=== PATIENT | female | born 1980 | race Caucasian/White ===

== ENCOUNTER 2023-06-10 14:58 | Emergency (ER) | payer BC, SELFPAY ==
[2023-06-10 15:07] VITALS: BP 148/84
[2023-06-10 15:30] LABS: % Basophils 0.5 % (0-2); % Eosinophils 0.4 % (0-6); % Immature Granulocytes 0.4 % (0-0.5); % Lymphocytes 13.8 % (20.5-51.1); % Monocytes 5.5 % (1.7-9.3); % Neutrophils 79.4 % (42.2-75.2); Absolute Monocytes 0.4 10^3/uL (0.1-0.6); Absolute Neutrophils 5.9 10^3/uL (1.4-6.5); Hematocrit 39.8 % (37.0-47.0); Mean Corp Hgb Conc. 32.7 g/dL (33.0-37.0); Mean Corpuscular Hgb 26.8 pg (27.0-31.0); Mean Corpuscular Volume 82.1 fL (81.0-99.0); Mean Platelet Volume 9.5 fL (7.4-10.4); Nucleated Red Blood Cells % 0 %; Platelet Count 292 10^3/uL (130-400); Red Blood Cell Count 4.85 10^6/uL (4.20-5.40); Red Cell Dist. Width 14.2 % (11.5-14.5); White Blood Cell Count 7.4 10^3/uL (4.8-10.8)
[2023-06-10 15:56] LABS: ALT (SGPT) 17 U/L (0-35); AST (SGOT) 23 U/L (14-36); Albumin 3.7 g/dl (3.5-5.0); Alkaline Phosphatase 77 U/L (38-126); Blood Urea Nitrogen 7 mg/dl (7-17); Calcium 9.6 mg/dl (8.4-10.2); Carbon Dioxide 27 mmol/L (22-30); Chloride 100 mmol/L (98-107); Glucose 104 mg/dl (70-99); Potassium 3.9 mmol/L (3.5-5.1); Sodium 136 mmol/L (135-145); Total Bilirubin 0.8 mg/dl (0.2-1.3); Total Protein 6.7 g/dl (6.3-8.2); Troponin I < 0.012 ng/ml; eGFR > 60.00
[2023-06-10 16:44] VITALS: BP 113/56
[2023-06-10 16:47] VITALS: BMI 29.2
--- NOTE | 2023-06-10 17:14 | ED.GENMED ---
History of Present Illness
General
Chief Complaint: Chest Pain
Source: patient
Exam Limitations: none
Time Seen by Provider: 06/10/23 17:14
Nursing documentation reviewed up to this point in time: agreed with
Travel History
Have you had any contact with someone who has COVID-19?: No
Do you have any symptoms of coronavirus? Fever > 100 degrees, chills, cough, shortness of breath, sore throat, loss of taste or smell, muscle aches, or headache?: No
History of Present Illness
History of Present Illness:
40-year-old female with history of Crohn's disease, colon resection presents stating since Saturday she has had burning left chest and left upper back pains intermittently. She states she when it started Saturday she had drank 3 to 4 glasses more
than usual of tea. She also had sausage that she has been eating daily since Saturday. She states she has become nauseous from the sausage and gets sick now every time she thinks about it.
Past History
Past History
ED Past Medical History: Other (Crohns Disease)
ED Past Surgical History: Bowel resection
Social History
Tobacco: Non-smoker
Alcohol: None
Personal: Single
Living: with family (lives with sister)
Employment: Not employed
Review of Systems
Review of Systems
Allergies reviewed?: Yes
All Other Systems: ROS reviewed and negative except as documented in HPI and ROS
Constitutional: Denies fever or fatigue
EENT: Denies sore throat
Respiratory: Denies cough or trouble breathing
Cardiac: Reports chest pain; Denies diaphoresis, palpitations or syncope
ABD/GI: Reports nausea; Denies abdominal pain, vomiting, diarrhea, constipated or anorexia
: Denies dysuria, frequency or difficulty voiding
Musculoskeletal: Reports no symptoms
Skin: Reports no symptoms
Neurological: Reports headache (mild)
Phy Exam
Physical Exam
Physical Exam:
GENERAL: No acute distress. A&Ox3.
CONSTITUTIONAL: Afebrile.
EYES: PERRL, conjunctivae normal
Neck: Supple
ENMT: moist mucus membranes, Pharynx nl, TMs normal
RESPIRATORY: Regular respirations, nonlabored, lungs clear.
CARDIOVASCULAR: Regular rate and rhythm, no murmurs, no rubs.
GI: Soft, nontender, normal BS
MUSCULOSKELETAL: Moves with ease. Well perfused.
SKIN: Warm, dry, pink
PSYCH: Normal mood and affect. Well kept, interactive and appropriate
NEUROLOGIC: Awake, alert and oriented. No focal neurological deficits
Scores
Heart Score for Chest Pain Patients
STEMI patient?: Not applicable
Course
Orders/Labs/Results
Orders:
Orders
06/10/23 15:10
EKG [Electrocardiogram (*1)] Urgent
Reason for Study: Chest Pain
EKG- Treatment ONCE
06/10/23 15:18
Complete Blood Count/With Diff Urgent
Comprehensive Metabolic Panel Urgent
Troponin I Urgent
06/10/23 17:40
CR Chest - 2 Views Urgent
Comment:
Reason For Exam: left chest pain
Abnormal Lab Results
06/10/23
15:18
MCH 26.8 L pg
(27.0-31.0)
MCHC 32.7 L g/dL
(33.0-37.0)
Absolute Lymphs (auto) 1.0 L 10^3/uL
(1.2-3.4)
Neutrophils % 79.4 H %
(42.2-75.2)
Lymphocytes % 13.8 L %
(20.5-51.1)
Glucose 104 H mg/dl
(70-99)
06/10/23 15:18
06/10/23 15:18
Vital Signs
Initial and Last Documented VS:
Initial Vital Signs
Temp Pulse Resp BP Pulse Ox
98.7 F 86 18 148/84 96
06/10/23 15:07 06/10/23 15:07 06/10/23 15:07 06/10/23 15:07 06/10/23 15:07
Last Documented Vital Signs
Temp Pulse Resp BP Pulse Ox
98.7 F 74 18 113/56 96
06/10/23 15:07 06/10/23 16:45 06/10/23 16:45 06/10/23 16:44 06/10/23 15:07
MDM/Problems Addressed
Differential Diagnosis Includes:
GERD, ACS
MDM/Problems Addressed:
40-year-old female with history of Crohn's disease, colon resection presents stating since Saturday she has had burning left chest and left upper back pains intermittently. She states she when it started Saturday she had drank 3 to 4 glasses more
than usual of tea. She also had sausage that she has been eating daily since Saturday. She states she has become nauseous from the sausage and gets sick now every time she thinks about it.
EKG NSR
06/10/2023 1803 PM
CBC with no clinically significant abnormality
CMP normal
Troponin normal
Chest x-ray NAD
Most likely GERD, RX for Zofran sent to her pharmacy. Recommend Omeprazole
Texted PCP hotline as she has no PCP.
*EKG
Interpreted by ED Provider?: Yes
EKG Intrepretation Date: 06/10/23
Interpretation: normal
Rate: normal
Rhythm: sinus
Almyra: normal axis
Interval: normal interval
QRS Pattern: normal QRS
Ischemia: no ischemia
*Critical Care Note
Total Time (30-74mins, 75-104mins- exclusive of procedures): Not Applicable
ED Attending Note
-
Portions of this chart may have been created with voice recognition software.� Occasional wrong word or��sound alike� substitutions may have occurred due to the inherent limitations of voice recognition software.
Discharge Plan
Departure
Patient Disposition: Home (Routine Discharge)
Date of Disposition: 06/10/23
Time of Disposition: 18:05
Patient with high blood pressure during this ER visit?: No
Condition: Good
Discharge Problem:
Gastroesophageal reflux disease
Instructions: Chest Pain That Is Not Caused by the Heart (DC), Acid Reflux and GERD in Adults (DC)
Prescriptions:
New
ondansetron 4 mg tablet,disintegrating
4 mg PO Q8H PRN (Reason: nausea/vomiting) 4 Days Qty: 14 0RF
Referrals:
NONE,* [Family Provider] -
Activity Restrictions/Additional Instructions:
I have sent her information to the primary care provider hotline. Someone should be calling you within the next couple of days to help set you up with a primary care physician.
I sent a prescription to your pharmacy for Zofran to use as needed for nausea.
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
Your laboratory work is all normal, your chest x-ray is normal and your EKG is normal, nothing worrisome in your workup here today
Interventions
Interventions:
*Risk Screen - Suicide Last Done: 06/10/23 16:47
*General Assessment Last Done: 06/10/23 16:47
*Neglect/Abuse Screening Last Done: 06/10/23 16:47
ED- Fall Risk Assessment Last Done: 06/10/23 16:50
*ED COVID-19 Vaccine History Last Done: 06/10/23 16:47
ED- Cardiac Assessment Last Done: 06/10/23 16:50
[2023-06-10 18:39] VITALS: BP 127/72
[2023-06-10 18:47] VITALS: BP 127/72
[2023-06-10 18:49] VITALS: BP 127/72
== END 2023-06-10 18:50 | disposition home or self-care (01) ==
LOC: EMR 14:58
PROVIDERS: EMERGENCY PHYSICIAN Emergency Medicine
DX: K21.9 Gastro-esophageal reflux disease without esophagitis (principal); K50.90 Crohn's disease, unspecified, without complications
CPT/HCPCS: 99285; 71046; 80053; 84484; 85025; 93005

== ENCOUNTER 2023-07-31 13:04 | Inpatient (IN) | payer BC, SELFPAY ==
[2023-07-31] VITALS (12 sets, daily range): BP systolic 69–129; BP diastolic 54–76; BMI 28.3
--- NOTE | 2023-07-31 09:01 | ED.GENMED ---
History of Present Illness
General
Chief Complaint: Abdominal Symptoms
Source: patient
Exam Limitations: none
Time Seen by Provider: 07/31/23 08:30
Travel History
Have you had any contact with someone who has COVID-19?: No
Do you have any symptoms of coronavirus? Fever > 100 degrees, chills, cough, shortness of breath, sore throat, loss of taste or smell, muscle aches, or headache?: No
History of Present Illness
History of Present Illness:
42-year-old female complaining of recurrent vomiting diarrhea abdominal bloating and abdominal pain. Symptoms started last evening. Vomited multiple times. Multiple episodes of diarrhea. Somewhat loose no blood or mucus. Patient with a history
of Crohn's disease and Crohn's resection. However this feels different than her Crohn's. No recent travel history no recent antibiotics. She did eat fish from a restaurant 2+ days ago.
Past History
Past History
ED Past Medical History: Other (Crohns Disease)
ED Past Surgical History: Bowel resection
Social History
Tobacco: Non-smoker
Alcohol: None
Personal: Single
Living: with family (lives with sister)
Employment: Not employed
Review of Systems
Review of Systems
All Other Systems: Not applicable
Constitutional: Denies fever
Respiratory: Reports no symptoms
: Reports no symptoms
Phy Exam
Physical Exam
Physical Exam:
GENERAL: Alert and oriented in no apparent distress
EYE: Orbits normal.
NECK: Supple
CARDIAC: Regular rate and rhythm without any obvious murmurs.
LUNGS: Clear breath sounds,normal
ABDOMEN: Distended. Decreased bowel sounds diffusely. Rare bowel sounds present. No rebound or guarding. Questionable mass in the left lower quadrant with localized tenderness.
NEUROLOGICAL: Alert and oriented , grossly non-focal
SKIN: Warm and dry, no rash or lesion, no discoloration, skin intact.
MUSCULOSKELETAL: No edema,no deformity.Good color
PSYCH: Normal and appropriate interaction.
Course
Orders/Labs/Results
Orders:
Orders
07/31/23 08:54
CMP [Comprehensive Metabolic Panel] Urgent
Complete Blood Count/With Diff Urgent
HCG, Serum Qualitative Screen Urgent
Lipase Urgent
07/31/23 08:56
IV Insert/Care/Rem.- Treatment PRN
STOOL [C difficile Antigen & Toxins] Urgent
MARGARET Source: Feces/Stool
Specimen Description:
Stool Culture Urgent
MARGARET Source: Feces/Stool
Specimen Description:
0.9% Sodium Chloride 1000 ml [Nss] 1,000 ml IV BOLUS
Ondansetron Injectable [Zofran] 4 mg IV NOW STA
07/31/23 08:57
CT Abd/Pel (IV only)-DH only Urgent
Comment:
Reason For Exam: Vomiting, diarrhea, left lower quadrant pain
Test Result ONCE
07/31/23 12:02
Ketorolac [Toradol] 15 mg IV NOW STA
Ondansetron Injectable [Zofran] 4 mg IV NOW STA
07/31/23 12:23
Admit/Transfer Patient As Directed
Co-Sign Provider:
Level of Care: Inpatient admission
Assign to:: Medical/Surgical
Physician / Group: hosp
Diagnosis: Small bowel obstruction
Reason for Hospitalization: Small bowel obstruction
Expected length of stay greater than two midnights?: Yes
ELOS- Estimated Length of Stay in days: 4
I certify the patient meets the requirements for IP care: Yes
07/31/23 12:25
Code Status As Directed
Resuscitation Status: Full Code
07/31/23 12:[address] Non Medication Order As Directed
Physician Order: Please insert NG tube to low Gomco suction
07/31/23 12:37
HYDROmorphone [Dilaudid] 0.5 mg IV Q4HPRN PRN
07/31/23 12:58
Lorazepam [Ativan] 0.25 mg IV Q8HPRN PRN
07/31/23 13:00
Stool Culture Routine
MARGARET Source: Feces/Stool
Specimen Description:
Stool For WBC Routine
MARGARET Source: Feces/Stool
Specimen Description:
Lactated Ringers [Lr] 1,000 ml IV 120 mls/hr
MethylPREDNISolone PF [Solu-Medrol Pf] 60 mg IV Q8H
Stool for occult blood [Hemetest Stools] As Directed
07/31/23 14:00
Piperacillin/Tazo 3.375 Gram [Zosyn] 3.375 gram in 50 ml IV Q6H
Abnormal Lab Results
07/31/23
08:54
WBC 11.2 H 10^3/uL
(4.8-10.8)
MCH 26.7 L pg
(27.0-31.0)
MCHC 32.1 L g/dL
(33.0-37.0)
RDW 14.6 H %
(11.5-14.5)
Absolute Neuts (auto) 9.9 H 10^3/uL
(1.4-6.5)
Absolute Lymphs (auto) 0.6 L 10^3/uL
(1.2-3.4)
Neutrophils % 88.7 H %
(42.2-75.2)
Lymphocytes % 5.5 L %
(20.5-51.1)
Chloride 108 H mmol/L
(98-107)
Glucose 120 H mg/dl
(70-99)
07/31/23 08:54
07/31/23 08:54
Vital Signs
Initial and Last Documented VS:
Initial Vital Signs
Temp Pulse Resp BP Pulse Ox
98.3 F 83 16 121/76 98
07/31/23 08:24 07/31/23 08:24 07/31/23 08:24 07/31/23 08:24 07/31/23 08:24
Last Documented Vital Signs
Temp Pulse Resp BP Pulse Ox
98.3 F 83 16 108/71 100
07/31/23 08:24 07/31/23 08:24 07/31/23 08:24 07/31/23 12:00 07/31/23 12:15
MDM/Problems Addressed
Differential Diagnosis Includes:
Differential includes Crohn's flare although patient states this feels different partial SBO. Doubt full SBO with patient having diarrhea. Colitis, infectious. Workup in progress
*Radiology
Radiology exam reviewed: radiology read reviewed (Partial SBO Crohn's flare moderate free fluid loculated)
*Pulse Oximetry
Patient hypoxic: no
*Critical Care Note
Total Time (30-74mins, 75-104mins- exclusive of procedures): Not Applicable
Data Reviewed
Review of Other/Old Records Reveals: Labs and Testing
Update Note
Update Note:
Patient warrants inpatient management. Partial SBO Crohn's flare.
ED Attending Note
-
Portions of this chart may have been created with voice recognition software.� Occasional wrong word or��sound alike� substitutions may have occurred due to the inherent limitations of voice recognition software.
Discharge Plan
Departure
Patient Disposition: Admit
Date of Disposition: 07/31/23
Time of Disposition: 11:14
Presentation/result/management discussed w/ accepting MD/DO: Hospitalist
Discharge Problem:
Crohn's flare, Partial SBO, Loculated peritoneal fluid
Prescriptions:
No Action
naproxen sodium [Aleve] 220 mg Tablet
220 mg PO TIDPRN PRN (Reason: mild pain)
aripiprazole 5 mg Tablet
5 mg PO HS
Gi Powder
1 dose PO DAILY
Patient Comments:
07/31/2023, one scoop.
Probiotic Powder
1 dose PO DAILY
Patient Comments:
07/31/2023, one scoop.
Vitamin C
1 dose PO DAILYPRN PRN (Reason: supplement)
Patient Comments:
07/31/2023, gummies.
cholecalciferol (vitamin D3)
1 tab PO DAILY
multivitamin liquid
1 dose PO DAILY
multivitamin
1 dose PO DAILYPRN PRN (Reason: supplement)
Patient Comments:
07/31/2023, gummies.
Referrals:
NONE,* [Family Provider] -
Interventions
Interventions:
*Risk Screen - Suicide Last Done: 07/31/23 08:43
*General Assessment Last Done: 07/31/23 08:43
*Neglect/Abuse Screening Last Done: 07/31/23 08:43
ED- Fall Risk Assessment Last Done: 07/31/23 08:43
*ED COVID-19 Vaccine History Last Done: 07/31/23 08:24
BC-Rjdphw-Gsztjrbubu Assessment Last Done: 07/31/23 08:43
Discharge Date and Time
Print Language: KYRGYZ
[2023-07-31 09:22] LABS: % Basophils 0.2 % (0-2); % Eosinophils 0.2 % (0-6); % Immature Granulocytes 0.4 % (0-0.5); % Lymphocytes 5.5 % (20.5-51.1); % Neutrophils 88.7 % (42.2-75.2); Absolute Lymphocytes 0.6 10^3/uL (1.2-3.4); Absolute Monocytes 0.6 10^3/uL (0.1-0.6); Absolute Neutrophils 9.9 10^3/uL (1.4-6.5); Hematocrit 40.5 % (37.0-47.0); Mean Corp Hgb Conc. 32.1 g/dL (33.0-37.0); Mean Corpuscular Hgb 26.7 pg (27.0-31.0); Mean Corpuscular Volume 83.2 fL (81.0-99.0); Mean Platelet Volume 10.1 fL (7.4-10.4); Nucleated Red Blood Cells % 0 %; Platelet Count 280 10^3/uL (130-400); Red Blood Cell Count 4.87 10^6/uL (4.20-5.40); Red Cell Dist. Width 14.6 % (11.5-14.5); White Blood Cell Count 11.2 10^3/uL (4.8-10.8)
[2023-07-31] MEDS: NSS 1000 IV (09:26)
[2023-07-31] MEDS: ZOFRAN 4 MG IV ×3 (09:27→23:32)
[2023-07-31 09:36] LABS: ALT (SGPT) 19 U/L (0-35); AST (SGOT) 25 U/L (14-36); Albumin 4.1 g/dl (3.5-5.0); Alkaline Phosphatase 73 U/L (38-126); Blood Urea Nitrogen 10 mg/dl (7-17); Calcium 9.1 mg/dl (8.4-10.2); Carbon Dioxide 24 mmol/L (22-30); Chloride 108 mmol/L (98-107); Estimated Creatinine Clearance > 125 ml/min; Glucose 120 mg/dl (70-99); Lipase 72 U/L (23-300); Potassium 4.5 mmol/L (3.5-5.1); Sodium 136 mmol/L (135-145); Total Bilirubin 0.6 mg/dl (0.2-1.3); Total Protein 6.7 g/dl (6.3-8.2); eGFR > 60.00
[2023-07-31 09:55] LABS: HCG, Serum Qualitative Screen Negative
[2023-07-31] MEDS: TORADOL 15 MG IV (12:10)
--- NOTE | 2023-07-31 12:38 | HPS.HSE ---
Family Physician
-
Family Physician: * NONE
Chief Complaint
-
Persisting and increasing nausea vomiting and diarrhea since last night
History of Present Illness
42-year-old female complaining of recurrent vomiting diarrhea abdominal bloating and abdominal pain. Symptoms started last evening. Vomited multiple times. Multiple episodes of diarrhea. Somewhat loose no blood or mucus. Patient with a history
of Crohn's disease and Crohn's resection. However this feels different than her Crohn's. No recent travel history no recent antibiotics. She did eat fish from a restaurant 2+ days ago. She has a history of a colectomy in the [place] area. more
recently She has been seen in [place] by a electric furnace operator that follows her for her Crohn's disease by the name of Dr. Knox/she has had prior experience with Biologics but never able to tolerate she does not have anyone locally to manage her
Crohn's in the last 2 years since she is moved here. She suspect she may have had a fever last night she did not present with a fever here she does have some minor leukocytosis on presentation she does not look septic. hCG was negative lipase
normal LFTs normal./She does not follow with any gynecology.
Medical History
Past Medical History
Past Medical History: Reports Psychiatric
Additional Past Medical History:
Treated for anxiety disorder with Abilify
Past Surgical History: Reports Bowel Resection
Additional Past Surgical History:
Prior history of colectomy in relation to 2 Crohn's disease
Social History
Tobacco: Non-smoker
Alcohol: None
Drug: None
Personal: Single
Living: With Family (Sister)
Employment: Not Employed
Family History
Family History: Not pertinent (Apparently no prior history of inflammatory bowel disease and family member)
Allergies / Home Medications
Allergies reflects when Allergies were last updated in [employer].
Home Medications with original date entered in [employer]
Allergy/Medication List:
Allergies
Allergy/AdvReac Type Severity Reaction Status Date / Time
shrimp Allergy Intermediate Swelling Verified 07/31/23 08:25
Milk Containing Products Allergy Unknown Unknown Verified 07/31/23 08:25
(Dairy)
Home Medications
Gi Powder 1 dose PO DAILY 07/31/23
Probiotic Powder 1 dose PO DAILY 07/31/23
Vitamin C 1 dose PO DAILYPRN PRN supplement 07/31/23
aripiprazole 5 mg tablet 5 mg PO HS 07/31/23
cholecalciferol (vitamin D3) 1 tab PO DAILY 07/31/23
multivitamin 1 dose PO DAILY 07/31/23
multivitamin 1 dose PO DAILYPRN PRN supplement 07/31/23
naproxen sodium 220 mg tablet (Aleve) 220 mg PO TIDPRN PRN mild pain 07/31/23
Review of Systems
-
History Source: Patient and Family
Constitutional: Reports Weight Loss (Recently but could not specify amount)
EENT: Reports No Symptoms
Abdomen/GI: Reports Abdominal Pain, Nausea, Vomiting, Diarrhea and Pain
: Reports No Symptoms
Musculoskeletal: Reports No Symptoms
Skin: Reports No Symptoms
Endocrine: Reports No Symptoms
Psych: Reports Anxiety
Physical Exam
Vital Signs
Vital Signs
Temp Pulse Resp BP Pulse Ox
98.3 F 83 16 108/71 100
07/31/23 08:24 07/31/23 08:24 07/31/23 08:24 07/31/23 12:00 07/31/23 12:15
Physical Exam
HEENT: NormoCephalic
Respiratory: Clear
Cardiac: S1/S2
GI: Tender and Distended
Neuro: Awake, Alert and Oriented
Psych: Calm
Laboratory Results
-
07/31/23 08:54
07/31/23 08:54
Laboratory Results
Total Bilirubin 0.6 mg/dl (0.2-1.3) 07/31/23 08:54
AST 25 U/L (14-36) 07/31/23 08:54
ALT 19 U/L (0-35) 07/31/23 08:54
Alkaline Phosphatase 73 U/L (38-126) 07/31/23 08:54
Lipase 72 U/L (23-300) 07/31/23 08:54
Data Reviewed
-
Critical Care Time (in minutes): 67
CT Scan: Report Reviewed by me (1. Two foci of inflammatory bowel wall thickening and luminal narrowing, one within the distal small bowel (best seen on series 201 images 49-52), and the second located within the high rectum, best seen on image 64.
Dilation of multiple loops of mid and distal small bowel, suggestive of at least pa)
Lab Data: Labs Reviewed by me (Mild leukocytosis macrocytosis/LFTs within normal limits as well as lipase/hCG negative)
Impression/Plan
-
42-year-old female complaining of recurrent vomiting diarrhea abdominal bloating and abdominal pain. Symptoms started last evening. Vomited multiple times. Multiple episodes of diarrhea. Somewhat loose no blood or mucus. Patient with a history
of Crohn's disease and Crohn's resection. However this feels different than her Crohn's. No recent travel history no recent antibiotics. She did eat fish from a restaurant 2+ days ago. She has a history of a colectomy in the [place] area. more
recently She has been seen in [place] by a electric furnace operator that follows her for her Crohn's disease by the name of Dr. Knox/she has had prior experience with Biologics but never able to tolerate she does not have anyone locally to manage her
Crohn's in the last 2 years since she is moved here. She suspect she may have had a fever last night she did not present with a fever here she does have some minor leukocytosis on presentation she does not look septic. hCG was negative lipase
normal LFTs normal./She does not follow with any gynecology.
CT scan of the abdomen and pelvis:
1. Two foci of inflammatory bowel wall thickening and luminal narrowing, one within the distal small bowel (best seen on series 201 images 49-52), and the second located within the high rectum, best seen on image 64. Dilation of multiple loops of
mid and distal small bowel, suggestive of at least partial intestinal obstruction.
2. Large amount of loculated intraperitoneal fluid, overall measuring 24 x 25 x 15 cm, of unknown etiology. Fluid may be related to ovarian mass, mucinous lesion of the bowel, or other etiology. Please correlate with prior imaging if available, and
consider pelvic ultrasound and or fluid sampling for cytology to determine etiology.
3. Cholelithiasis without evidence of acute cholecystitis.
Partial small bowel obstruction
-Prior history of Crohn's disease with colectomy
-Also involvement noted in rectum
-NG tube for decompression
-IV fluids
-Empiric antibiotic
-Consultation with colorectal and gastroenterology
Large amount of loculated intraperitoneal fluid
-As noted above unknown etiology/amount of loculation suggests some chronicity
-To the extent also involving and adjacent to the uterus
-Will obtain pelvic ultrasound
-Based on findings may need gynecologic input also/
Crohn's disease flare
-Failed prior courses of Biologics
-Sees electric furnace operator down in [place] area Dr. Knox no further details available from patient
-Will obtain gastroenterology input and start IV steroids for now
-Obtain stools for culture
Prior history of anxiety disorder
-On Abilify at bedtime
-Will need to be held during n.p.o. status and NG tube
DVT prophylaxis with Lovenox and SCDs
Full CODE STATUS
[2023-07-31] MEDS: LR 1000 IV (12:43)
--- NOTE | 2023-07-31 13:46 | CON.GI ---
Consultation
-
Date/Time Consultation Requested: 07/31/23 12:21pm
Date/Time Consultation Performed: 07/31/23 1:46pm
Requesting Provider: Kaden Chapman
Performing Provider: Chriss Gonzales
Reason for Consultation: Crohns, PSBO
Medical History
Chief Complaint / HPI
Chief Complaint: Crohn's, PSBO
History of Present Illness:
Patient is a 42-year-old female with a history of Crohn's disease who presents with nausea and vomiting and diarrhea and abdominal pain. She was diagnosed with Crohn's disease at age 18 in [place] and initially managed with Pentasa and
intermittent courses of steroids for years. She had a perforation in 2012 that led to an ileocecectomy. Following that she was on and off steroids for years but never started on Biologics. She also had stopped her Pentasa. In 2018 she had
further colon resection for obstruction with lysis of adhesions. Following that she was tried on Remicade but developed side effects and frequently got sick. She had 1 dose and did not resume. Since then she has been off of medications and has
tried to manage her Crohn's disease despite diet alone. She moved from [place] in 2021 but did not have a handy man until she met with Dr. Bermeo and your history of 4 months ago. This was her initial evaluation and he ordered stool
studies and asked her to return to the office for follow-up. She has had bloating, erratic bowel movements, episodic diarrhea alternating with constipation. She ate fish on Saturday at a restaurant and had bloating and feeling unwell. She began
with nausea, vomiting yesterday and has had diarrhea as well.
Past Medical History
Past Medical History: Other (Crohn's)
Past Surgical History: Other (Ileocecectomy for perforated bowel 2012. Colon resection for obstruction 2018)
Social History
Tobacco: Non-Smoker
Family History
Family History: Reviewed & Not Pertinent
Allergies / Home Medications
Allergy/AdvReac Type Severity Reaction Status Date / Time
shrimp Allergy Intermediate Swelling Verified 07/31/23 08:25
Milk Containing Products Allergy Unknown Unknown Verified 07/31/23 08:25
(Dairy)
�Medication �Instructions �Recorded
Gi Powder 1 dose PO DAILY 07/31/23
Probiotic Powder 1 dose PO DAILY 07/31/23
Vitamin C 1 dose PO DAILYPRN PRN supplement 07/31/23
aripiprazole 5 mg tablet 5 mg PO HS 07/31/23
cholecalciferol (vitamin D3) 1 tab PO DAILY 07/31/23
multivitamin 1 dose PO DAILY 07/31/23
multivitamin 1 dose PO DAILYPRN PRN supplement 07/31/23
naproxen sodium 220 mg tablet 220 mg PO TIDPRN PRN mild pain 07/31/23
(Aleve)
Review of Systems
-
All other systems: A 12 pt ROS was Negative except as stated above in HPI
Vital Signs
Temp Pulse Resp BP Pulse Ox
98.3 F 83 16 108/71 99
07/31/23 08:24 07/31/23 08:24 07/31/23 08:24 07/31/23 12:00 07/31/23 13:00
Physical Exam
Exam
General: Well Developed, Well Nourished and No Apparent Distress
HEENT: Normocephalic and Atraumatic
Respiratory: Non Labored Respirations
GI: Soft, Non Distended and Tender (mild tenderness, LLQ. No rebound or guarding)
Skin: Warm and Dry
Neuro: Awake and Alert
Results
WBC 11.2 10^3/uL (4.8-10.8) H 07/31/23 08:54
Hgb 13.0 g/dL (12.0-16.0) 07/31/23 08:54
Hct 40.5 % (37.0-47.0) 07/31/23 08:54
MCV 83.2 fL (81.0-99.0) 07/31/23 08:54
Plt Count 280 10^3/uL (130-400) 07/31/23 08:54
Absolute Neuts (auto) 9.9 10^3/uL (1.4-6.5) H 07/31/23 08:54
Sodium 136 mmol/L (135-145) 07/31/23 08:54
Potassium 4.5 mmol/L (3.5-5.1) 07/31/23 08:54
Chloride 108 mmol/L (98-107) H 07/31/23 08:54
Carbon Dioxide 24 mmol/L (22-30) 07/31/23 08:54
BUN 10 mg/dl (7-17) 07/31/23 08:54
Creatinine 0.6 mg/dL (0.6-1.0) 07/31/23 08:54
Calcium 9.1 mg/dl (8.4-10.2) 07/31/23 08:54
Total Bilirubin 0.6 mg/dl (0.2-1.3) 07/31/23 08:54
AST 25 U/L (14-36) 07/31/23 08:54
ALT 19 U/L (0-35) 07/31/23 08:54
Alkaline Phosphatase 73 U/L (38-126) 07/31/23 08:54
Lipase 72 U/L (23-300) 07/31/23 08:54
Diagnostic Image Results:
Prior GI Procedures:
EGD:
Colonoscopy:
Assessment / Plan
-
Summary: 42yo female with hx Crohn's dx'd age 18 s/p 2 surgeries in [place], not on medications presents with n/v/d, abd pain x 2 days, but has had chronic bloating, erratic BMs. Last colonoscopy at time of surgery in 2019. Just reestablished GI care
with Dr Bermeo in [facility] 3-4 months ago. NGT attempted in ER but unable to tolerate.
CT AP 07/30:
Thickening distal SB and high rectum. Dilation multiple loops mid/distal SB suggesting PSBO. Large amount loculated intraperitoneal fluid 24 x 25 x 15cm unknown etiology. Cholelithiasis
Impression:
PSBO 2/2 thickening in distal SB as well as high rectum
n/v/d
Crohn's disease not on medications
Ileocectomy 2012 for perforation
Colon resection 2018 for obstruction
Recommendations:
NPO
If further n/v, reattempt NGT for decompression
Abx- zosyn
If no improvement, may add steroids for Crohn's flare
Check stool studies r/o infxn
Unclear cause for loculated intraperitoneal fluid. Consider drainage for cytology and fluid analysis, will discuss with Colorectal Surgery
Will need to discuss initiating biologics as outpt with her GI in [facility] pending her hospital course and possible need for surgery
-
-
Thank you for consultation and allowing me to participate in the patient's care. Please call the transitional living specialist GI physician during the after hours with any questions or concerns.
[2023-07-31] MEDS: ZOSYN 50 IV ×2 (13:47→20:35)
[2023-07-31] MEDS: SOLU-MEDROL PF 60 MG IV ×2 (13:47→20:35)
--- NOTE | 2023-07-31 14:28 | CON.CRS ---
Consultation
-
Date/Time Consultation Requested: 07/31/2023, 12:55
Date/Time Consultation Performed: 07/31/2023, 14:00
Requesting Provider: Satya Chapman MD
Performing Provider: Jaylen Ramos MD
Reason for Consultation: crohns with sbo
Medical History
-
Chief Complaint: abdominal pain
History of Present Illness:
42 yo female with a PMH of Crohns disease, s/p two colectomies and currently not on any biologics, presents to the ER complaining of abdominal pain, nausea, vomiting, and diarrhea. The patient states the abdominal pain started yesterday evening when
she developed vomiting and subsequently the abdominal pain. She denies blood in her vomit. During this episode, she began to develop diarrhea and denies blood in her stool. The patient also believes she had a fever last night. She denies chest pain
or shortness of breath. She had some issues urinating when the pain developed but was able to urinate as she was vomiting. She states she feels bloated but has felt bloated for several years since her surgery in 2019. Apparently this occurs right
after eating, even if it is something small. She denies recent weight loss.
The patient states she was diagnosed with Crohns disease when she was 18 years old. She has lived in [place] and only recently moved to the area. She saw a GI doctor in [place] who put her on steroids when she was younger, and believes one of them
may have been Asacol. She underwent what sounds like a ileocecectomy due to perforation in [place] in 2012. Unfortunately her records are not available for review. She subsequently underwent what appears radiographically to be a subtotal colectomy
for lysis of adhesions and obstruction in 2019 in [place]. She was started on Remicade by a GI doctor, but stopped after one dose due to effects on her immune system. She has not been on any biologics since then. She recently saw a
lard bleacher, Dr. Lawrence, in [place] and wants to continue to follow up with her care there. She met with this physician four months ago and stool studies were ordered and she was told to follow up. Her last colonoscopy was in 2019 during her
surgery. She denies any other abdominal surgeries.
In the ER she is nauseated. Her WBC is 11.2 and her vitals are normal. CT A/P shows two foci of inflammatory bowel wall thickening and luminal narrowing, one within the distal small bowel, and the second located within the high rectum. Dilation of
multiple loops of mid and distal small bowel, suggestive of at least partial intestinal obstruction. Large amount of loculated intraperitoneal fluid, overall measuring 24 x 25 x 15 cm, of unknown etiology. Fluid may be related to ovarian mass,
mucinous lesion of the bowel, or other etiology. Please correlate with prior imaging if available, and consider pelvic ultrasound and or fluid sampling for cytology to determine etiology. Cholelithiasis without evidence of acute cholecystitis. Given
these findings, we have been consulted for further surgical recommendations.
Past Medical History
Past Medical History: Psychiatric (anxiety) and Other (Crohns dz - diagnosed at 18, not on any biologics )
Past Surgical History: Other (2013- ileocecectomy, 2019- subtotal colectomy)
Social History
Tobacco: Non-Smoker
Alcohol: Occasional
Drug: None
Employment: Not Employed
Family History
Family History: Other (Father's side with 'colon problems')
Allergies / Home Medications
Allergy/AdvReac Type Severity Reaction Status Date / Time
shrimp Allergy Intermediate Swelling Verified 07/31/23 08:25
Milk Containing Products Allergy Unknown Unknown Verified 07/31/23 08:25
(Dairy)
�Medication �Instructions �Recorded �Confirmed �Type
Gi Powder 1 dose PO DAILY 07/31/23 07/31/23 History
Probiotic Powder 1 dose PO DAILY 07/31/23 07/31/23 History
Vitamin C 1 dose PO DAILYPRN PRN supplement 07/31/23 07/31/23 History
aripiprazole 5 mg tablet 5 mg PO HS 07/31/23 07/31/23 History
cholecalciferol (vitamin D3) 1 tab PO DAILY 07/31/23 07/31/23 History
multivitamin 1 dose PO DAILY 07/31/23 07/31/23 History
multivitamin 1 dose PO DAILYPRN PRN supplement 07/31/23 07/31/23 History
naproxen sodium 220 mg tablet 220 mg PO TIDPRN PRN mild pain 07/31/23 07/31/23 History
(Aleve)
Review of Systems
-
History Source: Patient
Constitutional: Fever
Abdomen/GI: Abdominal Pain, Nausea, Vomiting, Diarrhea and Other (bloating)
A 10 point review of systems was completed, and was negative except as per HPI.
Physical Exam
Vital Signs
Temp 98.3 F 07/31/23 08:24
Pulse 83 07/31/23 08:24
Resp Rate 16 07/31/23 08:24
Blood pressure 105/62 07/31/23 14:00
SaO2 95 07/31/23 14:00
07/30/23 07/31/23 08/01/23
06:59 06:59 06:59
Actual Weight 77.1 kg
Body Mass Index (BMI) 28.3
Lab Results / Allergies
07/31/23 08:54
07/31/23 08:54
WBC 11.2 10^3/uL (4.8-10.8) H 07/31/23 08:54
Hgb 13.0 g/dL (12.0-16.0) 07/31/23 08:54
Hct 40.5 % (37.0-47.0) 07/31/23 08:54
Plt Count 280 10^3/uL (130-400) 07/31/23 08:54
Abs Immat Gran (auto) 0.0 10^3/uL (0-0.05) 07/31/23 08:54
Neutrophils % 88.7 % (42.2-75.2) H 07/31/23 08:54
Allergy/AdvReac Type Severity Reaction Status Date / Time
shrimp Allergy Intermediate Swelling Verified 07/31/23 08:25
Milk Containing Products Allergy Unknown Unknown Verified 07/31/23 08:25
(Dairy)
Physical Exam
General: Well Developed, Well Nourished and No Apparent Distress
GI: Soft, Tender (mildly diffuse, more prominent in RLQ) and Distended
Skin: Warm
Neuro: AO x 3
Data Reviewed
-
CT Scan: Image Personally Visualized and interpreted, Report Reviewed by me and Discussed with Patient
Labs: Labs Reviewed by me, Discussed with Physician and Discussed with Patient
Old Records: Reviewed
Assessment / Plan
-
Assessment: 42 yo female with a history of Crohns disease not currently on biologics and s/p two colectomies in the past in [place], presents with abdominal pain, nausea, vomiting, diarrhea and fever. On CT A/P, she is found with a two foci of
inflammatory bowel wall thickening and luminal narrowing, one within the distal small bowel and the second located within the high rectum, dilation of multiple loops of mid and distal small bowel, suggestive of at least partial intestinal
obstruction, large amount of loculated intraperitoneal fluid, overall measuring 24 x 25 x 15 cm, of unknown etiology. Fluid may be related to ovarian mass, mucinous lesion of the bowel, or other etiology.
Plan:
1. No urgent surgery required at this time.
2. Recommend consult with gastroenterology.
3. Will consult IR for aspiration of fluid collection.
4. Recommend a transvaginal ultrasound.
5. Will order tumor markers - CEA and CA-125.
6. Remain NPO.
7. On IV Zosyn per medical service.
8. Stool cultures pending.
9. Will follow.
[2023-07-31 16:55] LABS: Body Fluid WBC 25 /CUMM
[2023-07-31 16:58] LABS: Body Fluid Second Tech EYM
[2023-07-31 17:13] LABS: Body Fluid Albumin 3.3 g/dl; Body Fluid Amylase 280 U/L; Body Fluid Glucose 41 mg/dl; Body Fluid LDH 102 U/L; Body Fluid Protein 5.1 g/dl
[2023-07-31] MEDS: LOVENOX 40 MG SC (18:43)
--- NOTE | 2023-07-31 18:49 | PTCARENOTE ---
PATIENT ARRIVED ON FROM ED AT APPROXIMATELY 1820. PT WALKED OFF OF STRETCHER TO BED. PT AAOX3. PT ORIENTED TO ROOM. NO COMPLAINTS OFFERED AT THIS TIME. CONTINUE TO MONITOR
[2023-07-31] MEDS: ATIVAN 0.25 MG IV (21:05)
--- NOTE | 2023-07-31 23:00 | PTCARENOTE ---
Pt had order for NGT placement, NGT order vague. Specimen Transporter reached out to SOHAM Chaparro for clarifying order. SOHAM Chaparro made aware pt also had difficulty keeping NGT down and had removed it in ED, with no current vomiting only some nausea. HOSPITAL ACCOUNT MANAGER
ordered to hold NGT unless pt has episodes of vomiting d/t being unable to keep it down prior. Pt ordered PRN Zofran and one time dose of Protonix IV. No further orders.
[2023-07-31] MEDS: NSS (PRESERVATIVE FREE) 10 ML IV (23:50)
[2023-07-31] MEDS: PROTONIX IV 40 MG IV (23:50)
[2023-08-01] MEDS: ZOSYN 50 IV ×4 (03:07→19:59)
[2023-08-01] MEDS: LR 1000 IV (03:07)
[2023-08-01] MEDS: SOLU-MEDROL PF 60 MG IV (05:51)
[2023-08-01 07:00] VITALS: BP 93/54
--- NOTE | 2023-08-01 08:21 | W.PN.CRS1 ---
Today's Communication / Plan
-
Ok for clrs, back down to NPO if any N/V
F/u stool studies, CRP, calpro
F/u fluid studies, tumor markers and transvaginal U/S
Appreciate GI
Assessment/Plan
-
42-year-old female with a long history of Crohn's disease (initially diagnosed at 18 years old, s/p rounds of steroids and maintenance therapy with asacol; s/p likely ileocecal resection in 2012 for perforation and subtotal colectomy in 2019; was
started on Remicade, but only received 1 dose and stopped due to side effects; recently moved to the area and has not continued care with the GI doctor; last endoscopic evaluation of the rectum was in 2019 during the surgery) who presents with 1 day
of acute onset nausea/vomiting, diarrhea and subjective fevers. She also c/o abdominal fullness x 4 to 5 years with early satiety, this has been stable; in the ED, her WBC was 11.2, VSS, CT showing small bowel obstruction with 2 points of bowel
wall thickening in the distal SB and proximal rectum, as well as large multiloculated fluid within the abdomen
07/30 s/p IR aspiration of abd, 2L of clear brown ascites
AFVSS, labs pending
� No indication for acute surgical intervention; recommend nonoperative measures and further workup
� Her SBO is likely related to the bowel wall thickening in the distal small bowel; differential includes Crohn's versus adhesions versus infectious
�Appreciate GI consult, will defer to GI for steroids
�F/u stool studies, CRP and fecal calpro
�Consider CTE or MRE to evaluate if wall thickening is inflammatory or stricture
�Will need flexible sigmoidoscopy to evaluate the rectum due to thickening noted on CT
� The abdominal fluid is of unknown origin; she denies any history of liver disease, recent surgeries, weight loss or gynecologic issues
�S/p IR aspiration, f/u fluid studies and cytology
�F/u transvaginal ultrasound and tumor markers to assess for gynecologic malignancy
�Ok for clears, back down to NPO if any N/V
�Appreciate hospitalist; on abx empirically
Subjective Data
Subjective Data
Date of Service: August 01, 2023
No overnight events. Feeling better this morning. Nausea controlled with Zofran, no more vomiting.
Abdominal pain is minimal.
Patient is NPO.
+flatus +BMs (3 since yesterday) +voiding
Pt is OOB.
Objective Data
-
Vital Signs
Temp Pulse Resp BP Pulse Ox
98.6 F 65 16 104/54 97
07/31/23 23:29 07/31/23 23:29 07/31/23 23:29 07/31/23 23:29 07/31/23 23:29
Intake & Output
07/31/23 08/01/23 08/02/23
06:59 06:59 06:59
Intake Total 0 / 0
Balance 0 / 0
Intake:
Oral fluids 0 / 0
IV fluids (Total) 0 / 0
IV piggybacks 0 / 0
Other:
Number of approximated MODERATE 2
amounts of urine
Physical Exam
-
General: No Acute Distress and AOx3
HEENT: Grossly Normal
Abdomen: Soft, Non Distended, Tender (Minimally tender in the bilateral lower quadrants), No Guarding and No Rebound
Skin: Warm and Dry
[2023-08-01 09:18] LABS: Hematocrit 34.7 % (37.0-47.0); Hemoglobin 11.4 g/dL (12.0-16.0); Mean Corp Hgb Conc. 32.9 g/dL (33.0-37.0); Mean Platelet Volume 10.3 fL (7.4-10.4); Platelet Count 227 10^3/uL (130-400); Red Blood Cell Count 4.23 10^6/uL (4.20-5.40); Red Cell Dist. Width 14.4 % (11.5-14.5); White Blood Cell Count 6.9 10^3/uL (4.8-10.8)
[2023-08-01 09:54] LABS: ALT (SGPT) 20 U/L (0-35); AST (SGOT) 22 U/L (14-36); Albumin 3.1 g/dl (3.5-5.0); Alkaline Phosphatase 66 U/L (38-126); Blood Urea Nitrogen 10 mg/dl (7-17); Calcium 8.3 mg/dl (8.4-10.2); Carbon Dioxide 21 mmol/L (22-30); Chloride 110 mmol/L (98-107); Estimated Creatinine Clearance > 125 ml/min; Glucose 123 mg/dl (70-99); Iron 46 ug/dl (37-170); Magnesium 2.1 mg/dl (1.6-2.3); Potassium 3.8 mmol/L (3.5-5.1); Sodium 135 mmol/L (135-145); Total Bilirubin 0.7 mg/dl (0.2-1.3); Total Protein 5.4 g/dl (6.3-8.2); eGFR > 60.00
[2023-08-01 10:03] LABS: Percent Saturation 15 % (20-50); Total Iron Binding Capacity 302 ug/dl (265-497)
--- NOTE | 2023-08-01 10:46 | W.PN.HOSP.TC ---
Today's Communication/Plan
-
Trial of clears this morning
Await fluid analysis from paracentesis/cytology results
Await transvaginal ultrasound may need gynecologic input based on results
Continue IV steroids and IV Zosyn for now
Calprotectin pending/CRP pending
Assessment / Plan
Assessment / Plan
42-year-old female complaining of recurrent vomiting diarrhea abdominal bloating and abdominal pain. Symptoms started last evening. Vomited multiple times. Multiple episodes of diarrhea. Somewhat loose no blood or mucus. Patient with a history
of Crohn's disease and Crohn's resection. However this feels different than her Crohn's. No recent travel history no recent antibiotics. She did eat fish from a restaurant 2+ days ago. She has a history of a colectomy in the [place] area. more
recently She has been seen in [place] by a warehouse laborer that follows her for her Crohn's disease by the name of Dr. Knox/she has had prior experience with Biologics but never able to tolerate she does not have anyone locally to manage her
Crohn's in the last 2 years since she is moved here. She suspect she may have had a fever last night she did not present with a fever here she does have some minor leukocytosis on presentation she does not look septic. hCG was negative lipase
normal LFTs normal./She does not follow with any gynecology.
CT scan of the abdomen and pelvis:
1. Two foci of inflammatory bowel wall thickening and luminal narrowing, one within the distal small bowel (best seen on series 201 images 49-52), and the second located within the high rectum, best seen on image 64. Dilation of multiple loops of
mid and distal small bowel, suggestive of at least partial intestinal obstruction.
2. Large amount of loculated intraperitoneal fluid, overall measuring 24 x 25 x 15 cm, of unknown etiology. Fluid may be related to ovarian mass, mucinous lesion of the bowel, or other etiology. Please correlate with prior imaging if available, and
consider pelvic ultrasound and or fluid sampling for cytology to determine etiology.
3. Cholelithiasis without evidence of acute cholecystitis.
Partial small bowel obstruction
-Prior history of Crohn's disease with colectomy
-Also involvement noted in rectum
-NG tube for decompression was pulled out by patient last night
-IV fluids
-Empiric antibiotic
-Possible Crohn's flare will start on empiric IV steroids and defer to GI
-Consultation with colorectal and gastroenterology
Large amount of loculated intraperitoneal fluid
-As noted above unknown etiology/amount of loculation suggests some chronicity
-To the extent also involving and adjacent to the uterus
-Interventional radiology saw and drained at 2100 cc of light-colored brown fluid
-Initial fluid results suggest lack of infection/await cytology
-Will obtain pelvic transvaginal ultrasound
-Based on findings may need gynecologic input also/
Crohn's disease flare
-Failed prior courses of Biologics
-Sees warehouse laborer down in [place] area Dr. Knox no further details available from patient
-Will obtain gastroenterology input and start IV steroids for now
-Obtain stools for culture
Prior history of anxiety disorder
-On Abilify at bedtime
-Will need to be held during n.p.o. status and NG tube
-Can be restarted if tolerates clears
Atypical chest discomfort
-Unremarkable EKG
-Possibly aggravated by anxiety and/or active pulling up NG tube may have instigated some esophagitis
-Continue PPI
DVT prophylaxis with Lovenox and SCDs
Full CODE STATUS
Anticipated Discharge: 24 - 48 hours
Subjective/Interval History
-
Date of Service: August 01, 2023
Looks much more comfortable family at bedside was to try liquid diet this in front of her no issues overnight less abdominal distention and discomfort after tap
Objective Data
-
Labs:
Laboratory Results
08/01/23
08:18
WBC 6.9
Hgb 11.4 L
Hct 34.7 L
Plt Count 227
Sodium 135
Potassium 3.8
Chloride 110 H
Carbon Dioxide 21 L
BUN 10
Creatinine 0.6
Glucose 123 H
Calcium 8.3 L
Total Bilirubin 0.7
AST 22
ALT 20
Alkaline Phosphatase 66
Vital Signs:
Vital Signs
Temp Pulse Resp BP Pulse Ox
98 F 62 12 93/54 98
08/01/23 07:00 08/01/23 07:00 08/01/23 07:00 08/01/23 07:00 08/01/23 07:00
I&O
07/31/23 08/01/23 08/02/23
06:59 06:59 06:59
Intake Total 0 / 0
Balance 0 / 0
Review of Systems
-
History Source: Patient and Family
Constitutional: Reports Weight Loss
Respiratory: Reports No Symptoms
Abdomen/GI: Denies Abdominal Pain, Nausea or Diarrhea
Physical Exam
-
General: Well Developed
HEENT: Normocephalic
Respiratory: Clear to Auscultation
Cardiac: Regular Rhythm
GI: Soft, Nontender and Nondistended
Psych: Calm, Confused and Agitated
Data Reviewed
-
Total Time Spent with Patient (in minutes): 45
Diagnostic Radiology: Report Reviewed by me and Discussed with Family
Ultrasound: Report Reviewed by me (Pending transvaginal ultrasound)
Labs: Labs Reviewed by me (Fluid from paracentesis looks to be a transudative without evidence of infection awaiting cytology result)
--- NOTE | 2023-08-01 11:23 | W.PN.GI.CBS2 ---
Today's Communication / Plan
-
Clinically improved
Trial on clear liquid diet
Cont abx
IV solumedrol started 60mg IV daily
Fecal calpro pending
Await cytology from loculated peritoneal fluid. Check pelvic US
CA 125, CEA pending
Eventually needs flex vx colonoscopy. IP vs OP
F/U with her GI in [facility]- Agust[facility] Or[facility]
Assessment / Plan
-
Summary: 42yo female with hx Crohn's dx'd age 18 s/p 2 surgeries in [place], not on medications presents with n/v/d, abd pain x 2 days, but has had chronic bloating, erratic BMs. Last colonoscopy at time of surgery in 2019. Just reestablished GI care
with Dr Bermeo in [facility] 3-4 months ago. NGT attempted in ER but unable to tolerate.
CT AP 07/30:
Thickening distal SB and high rectum. Dilation multiple loops mid/distal SB suggesting PSBO. Large amount loculated intraperitoneal fluid 24 x 25 x 15cm unknown etiology. Cholelithiasis
Impression:
PSBO 2/2 thickening in distal SB as well as high rectum
n/v/d
Crohn's disease not on medications
Ileocectomy 2012 for perforation
Colon resection 2018 for obstruction
Subjective
Subjective
Date of Service: August 01, 2023
Pt pulled out NGT overnight due to mucus and difficulty breathing. Had small liquid BM. NO n/v. Tolerating clears
Objective
Data Reviewed
Laboratory Data:
Laboratory Results
08/01/23 08:18
08/01/23 08:18
Laboratory Results
Magnesium 2.1 mg/dl (1.6-2.3) 08/01/23 08:18
Total Bilirubin 0.7 mg/dl (0.2-1.3) 08/01/23 08:18
AST 22 U/L (14-36) 08/01/23 08:18
ALT 20 U/L (0-35) 08/01/23 08:18
Alkaline Phosphatase 66 U/L (38-126) 08/01/23 08:18
Lipase 72 U/L (23-300) 07/31/23 08:54
Vital Signs and I&O:
Vital Signs
Temp Pulse Resp BP Pulse Ox
98 F 62 12 93/54 98
08/01/23 07:00 08/01/23 07:00 08/01/23 07:00 08/01/23 07:00 08/01/23 07:00
I&O
07/31/23 08/01/23 08/02/23
06:59 06:59 06:59
Intake Total 0 / 0
Balance 0 / 0
Physical Exam
Physical Exam
GI: Soft, Non Distended and Tender (mild LLQ tender)
[2023-08-01 12:15] LABS: CA 125 24.8 U/mL (0-35)
[2023-08-01 12:37] LABS: CEA 0.75 ng/ml
[2023-08-01 12:57] LABS: Vitamin B12 > 1000 pg/ml (239-931)
[2023-08-01] MEDS: LR IV ×2 (13:14→14:25)
[2023-08-01 15:00] VITALS: BP 107/46
[2023-08-01] MEDS: LOVENOX 40 MG SC (17:38)
--- NOTE | 2023-08-01 18:38 | PTCARENOTE ---
pt reports that she felt mildly nauseous and bloated here later in the day. The nausea passed but still feels bloated and 'blocked'. Encouraged to walk which she is doing.
--- NOTE | 2023-08-01 21:45 | PTCARENOTE ---
Pt reports feeling flushed after IV Zosyn administration. Pt has a new light pink rash across both cheeks and upper middle chest. Pt denies difficulty breathing and reports 'this happened last time I got the Zosyn'. [place] FIELD HUMAN RESOURCES MANAGER Krystina Gregory
notified, no new orders at this time. Will continue to monitor.
[2023-08-01 23:51] VITALS: BP 101/53
[2023-08-02] MEDS: ZOSYN 50 IV ×4 (02:37→20:50)
[2023-08-02 07:00] VITALS: BP 95/58
[2023-08-02 07:55] LABS: Hematocrit 33.2 % (37.0-47.0); Hemoglobin 10.8 g/dL (12.0-16.0); Mean Corp Hgb Conc. 32.5 g/dL (33.0-37.0); Mean Corpuscular Hgb 27.3 pg (27.0-31.0); Mean Corpuscular Volume 84.1 fL (81.0-99.0); Mean Platelet Volume 10.2 fL (7.4-10.4); Platelet Count 197 10^3/uL (130-400); Red Blood Cell Count 3.95 10^6/uL (4.20-5.40); Red Cell Dist. Width 14.6 % (11.5-14.5)
--- NOTE | 2023-08-02 08:24 | W.PN.CRS1 ---
Today's Communication / Plan
-
ok for fulls
tumor markers and transvaginal US negative for malignancy
f/u stool Cx and fluid cytology
Assessment/Plan
-
42-year-old female with a long history of Crohn's disease (initially diagnosed at 18 years old, s/p rounds of steroids and maintenance therapy with asacol; s/p likely ileocecal resection in 2012 for perforation and subtotal colectomy in 2019; was
started on Remicade, but only received 1 dose and stopped due to side effects; recently moved to the area and has not continued care with the GI doctor; last endoscopic evaluation of the rectum was in 2019 during the surgery) who presents with 1 day
of acute onset nausea/vomiting, diarrhea and subjective fevers. She also c/o abdominal fullness x 4 to 5 years with early satiety, this has been stable; in the ED, her WBC was 11.2, VSS, CT showing small bowel obstruction with 2 points of bowel
wall thickening in the distal SB and proximal rectum, as well as large multiloculated fluid within the abdomen
/ s/p IR aspiration of abd, 2L of clear brown ascites
AFVSS,
WBC 5.0
� No indication for acute surgical intervention; cont nonoperative measures
� Her SBO is likely related to the bowel wall thickening in the distal small bowel; differential includes Crohn's versus adhesions versus infectious
�Appreciate GI consult, will defer to GI for steroids
�CRP 45, Cdiff negative, stool Cx and fecal calpro pending
�Consider CTE or MRE to evaluate if wall thickening is inflammatory or stricture
�Will need flexible sigmoidoscopy to evaluate the rectum due to thickening noted on CT
� The abdominal fluid is of unknown origin; she denies any history of liver disease, recent surgeries, weight loss or gynecologic issues
-CEA 0.75, CA125 24.8
-Transvaginal US - benign right ovarian cyst
�S/p IR aspiration, f/u fluid studies and cytology
�Ok for fulls, back down to NPO if any N/V
�Appreciate hospitalist; on abx empirically
Subjective Data
Subjective Data
Date of Service: August 02, 2023
No overnight events. Some mild nausea, but mostly improved. No vomiting. Not feeling bloated, but not much appetite.
Pain improving
Tolerating clears.
+flatus (a little yesterday) +BMs (a few episodes of liquid) +voiding
Pt is OOB.
Objective Data
-
Vital Signs
Temp Pulse Resp BP Pulse Ox
98.0 F 59 12 95/58 97
08/02/23 07:00 08/02/23 07:00 08/02/23 07:00 08/02/23 07:00 08/02/23 07:00
Intake & Output
08/01/23 08/02/23 08/03/23
06:59 06:59 06:59
Intake Total 0 / 0 2180 / 2180
Balance 0 / 0 2180 / 2180
Intake:
Oral fluids 0 / 0 2079 / 0
IV fluids (Total) 0 / 0 0 / 0
IV piggybacks 0 / 0 100 / 100
Other:
Number of approximated MODERATE 2 2
amounts of urine
Number of approximated LARGE 1
amounts of urine
Lab Results
08/02/23 07:32
Physical Exam
-
General: No Acute Distress and AOx3
Abdomen: Soft, Non Distended, Tender (Minimally tender in the right hemiabdomen), No Guarding and No Rebound
Skin: Warm and Dry
[2023-08-02 08:38] LABS: ALT (SGPT) 32 U/L (0-35); AST (SGOT) 48 U/L (14-36); Albumin 2.8 g/dl (3.5-5.0); Alkaline Phosphatase 59 U/L (38-126); Blood Urea Nitrogen 11 mg/dl (7-17); Calcium 8.5 mg/dl (8.4-10.2); Carbon Dioxide 25 mmol/L (22-30); Chloride 107 mmol/L (98-107); Estimated Creatinine Clearance 94 ml/min; Glucose 94 mg/dl (70-99); Magnesium 2.3 mg/dl (1.6-2.3); Potassium 3.6 mmol/L (3.5-5.1); Sodium 136 mmol/L (135-145); Total Bilirubin 0.5 mg/dl (0.2-1.3); Total Protein 5.1 g/dl (6.3-8.2); eGFR > 60.00
[2023-08-02] MEDS: SOLU-MEDROL PF 20 MG IV ×2 (09:49→16:19)
--- NOTE | 2023-08-02 10:48 | W.PN.HOSP.TC ---
Today's Communication/Plan
-
Will advance to full liquids
Continue IV fluids for now
Continue empiric antibiotic and IV steroids as per GI
Await peritoneal fluid cytology results
Assessment / Plan
Assessment / Plan
42-year-old female complaining of recurrent vomiting diarrhea abdominal bloating and abdominal pain. Symptoms started last evening. Vomited multiple times. Multiple episodes of diarrhea. Somewhat loose no blood or mucus. Patient with a history
of Crohn's disease and Crohn's resection. However this feels different than her Crohn's. No recent travel history no recent antibiotics. She did eat fish from a restaurant 2+ days ago. She has a history of a colectomy in the [place] area. more
recently She has been seen in [place] by a production team leader that follows her for her Crohn's disease by the name of Dr. Knox/she has had prior experience with Biologics but never able to tolerate she does not have anyone locally to manage her
Crohn's in the last 2 years since she is moved here. She suspect she may have had a fever last night she did not present with a fever here she does have some minor leukocytosis on presentation she does not look septic. hCG was negative lipase
normal LFTs normal./She does not follow with any gynecology.
CT scan of the abdomen and pelvis:
1. Two foci of inflammatory bowel wall thickening and luminal narrowing, one within the distal small bowel (best seen on series 201 images 49-52), and the second located within the high rectum, best seen on image 64. Dilation of multiple loops of
mid and distal small bowel, suggestive of at least partial intestinal obstruction.
2. Large amount of loculated intraperitoneal fluid, overall measuring 24 x 25 x 15 cm, of unknown etiology. Fluid may be related to ovarian mass, mucinous lesion of the bowel, or other etiology. Please correlate with prior imaging if available, and
consider pelvic ultrasound and or fluid sampling for cytology to determine etiology.
3. Cholelithiasis without evidence of acute cholecystitis.
Partial small bowel obstruction
-Prior history of Crohn's disease with colectomy
-Also involvement noted in rectum
-NG tube for decompression was pulled out by patient last night
-IV fluids
-Empiric antibiotic
-Possible Crohn's flare will start on empiric IV steroids and defer to GI
-CEA level of 0.75/CA125 at 24.8
-Consultation with colorectal and gastroenterology
Large amount of loculated intraperitoneal fluid
-As noted above unknown etiology/amount of loculation suggests some chronicity
-To the extent also involving and adjacent to the uterus
-Interventional radiology saw and drained at 2100 cc of light-colored brown fluid
-Initial fluid results suggest lack of infection/await cytology
-pelvic transvaginal ultrasound exhibited evidence of a ruptured ovarian cyst with normal ovaries and uterus noted otherwise unlikely cause of significant intraperitoneal fluid found on CT imaging
-Will continue to await cytology results from peritoneal fluid
Crohn's disease flare
-Failed prior courses of Biologics
-Sees production team leader down in [place] area Dr. Knox no further details available from patient
-Will obtain gastroenterology input and start IV steroids for now
-Fecal calprotectin pending
-Obtain stools for culture
Prior history of anxiety disorder
-On Abilify at bedtime
-Will need to be held during n.p.o. status and NG tube
-Can be restarted if tolerates clears
Atypical chest discomfort
-Unremarkable EKG
-Possibly aggravated by anxiety and/or active pulling up NG tube may have instigated some esophagitis
-Continue PPI
DVT prophylaxis with Lovenox and SCDs
Full CODE STATUS
Anticipated Discharge: 24 - 48 hours
Subjective/Interval History
-
Date of Service: August 02, 2023
She is comfortable and has tolerated a clear liquid diet since yesterday denies any abdominal discomfort passing stools that are loose. No nausea
Objective Data
-
Labs:
Laboratory Results
08/02/23
07:32
WBC 5.0
Hgb 10.8 L
Hct 33.2 L
Plt Count 197
Sodium 136
Potassium 3.6
Chloride 107
Carbon Dioxide 25
BUN 11
Creatinine 0.8
Glucose 94
Calcium 8.5
Total Bilirubin 0.5
AST 48 H
ALT 32
Alkaline Phosphatase 59
Vital Signs:
Vital Signs
Temp Pulse Resp BP Pulse Ox
98.0 F 59 12 95/58 97
08/02/23 07:00 08/02/23 07:00 08/02/23 07:00 08/02/23 07:00 08/02/23 07:00
I&O
08/01/23 08/02/23 08/03/23
06:59 06:59 06:59
Intake Total 0 / 0 2180 / 2180
Balance 0 / 0 0 / 2180
Review of Systems
-
History Source: Patient
Constitutional: Reports Weight Loss
EENT: Reports No Symptoms Reported
Respiratory: Reports No Symptoms
Cardiac: Reports No Symptoms
Physical Exam
-
General: Well Developed
HEENT: Normocephalic
Respiratory: Clear to Auscultation
Cardiac: Regular Rhythm
GI: Soft and Nontender
Neuro: Awake
Psych: Calm
Data Reviewed
-
Total Time Spent with Patient (in minutes): 45
Diagnostic Radiology: Report Reviewed by me (Transvaginal ultrasound only showed remnants of a ruptured ovarian cyst/unlikely because of the significant amount of intraperitoneal fluid she had otherwise uterus and ovaries looked okay)
Labs: Labs Reviewed by me (Hemoglobin 10.8 white count 5.0 normal electrolyte)
--- NOTE | 2023-08-02 14:07 | W.PN.GI.CBS2 ---
Addendum entered and electronically signed by Jazmyn Quinones MD 08/02/23 16:24:
I saw and examined the patient.
The WAREHOUSE LABORER's note was reviewed and I agree with the note.
Comment: Partial small bowel obstruction most likely related to stricturing Crohn's disease versus Crohn's flare versus adhesions. Continue antibiotics and steroids. Currently on full liquid diet. She did see a photocopy operator in [place] to
establish care but she is unsure if she will be going back to [place]. She is interested in pursuing IBD centers in [place] will refer her to [facility] and will need an updated colonoscopy and will also need discussion
about starting Biologics. Hopefully the obstruction will resolve without repeat surgery. She is passing flatus and she had a liquid bowel movements no bleeding. Will get a CT enterography. Noted input from colorectal surgery also.
Also has an intraperitoneal fluid collection status post aspiration unclear etiology will also need to rule out fistulizing disease. doubt abscess. She did have a pelvic ultrasound she had small ovarian cysts but doubt that this is related to
ruptured ovarian cyst. She does have minimal pelvic fluid noted. Her tumor markers including CEA and CA125 are normal will follow-up on the fluid cytology. Will also repeat CT with CT enterography to reassess the fluid collection also.
Original Note:
Today's Communication / Plan
-
CR enterography
Assessment / Plan
-
Summary: 42yo female with hx Crohn's dx'd age 18 s/p 2 surgeries in [place], not on medications presents with n/v/d, abd pain x 2 days, but has had chronic bloating, erratic BMs. Last colonoscopy at time of surgery in 2019. Just reestablished GI care
with Dr Bermeo in [facility] 3-4 months ago. NGT attempted in ER but unable to tolerate.
CT AP 07/30:
Thickening distal SB and high rectum. Dilation multiple loops mid/distal SB suggesting PSBO. Large amount loculated intraperitoneal fluid 24 x 25 x 15cm unknown etiology. Cholelithiasis
Impression:
PSBO 2/2 thickening in distal SB as well as high rectum
n/v/d
Crohn's disease not on medications
Ileocectomy 2012 for perforation
Colon resection 2018 for obstruction
Intraperitoneal fluid collection s/p aspiration
Plan:
-Full liquids
-Await pending labs and stools
-Check CT enterography
-Trend labs
Subjective
Subjective
Date of Service: August 02, 2023
Patient with less LLQ discomfort, now mild tenderness. Passing some flatus. Had 2 BMs this am. Tolerating clear liquids without any difficulty. Had full liquid for lunch no pain but feels a little more full with this. Stool CDiff antigen positive,
toxin negative. Other stool studies pending. Stool calpro pending. Intraperitoneal fluid cytology pending.
Objective
Data Reviewed
Laboratory Data:
Laboratory Results
08/02/23 07:32
08/02/23 07:32
Laboratory Results
Magnesium 2.3 mg/dl (1.6-2.3) 08/02/23 07:32
Total Bilirubin 0.5 mg/dl (0.2-1.3) 08/02/23 07:32
AST 48 U/L (14-36) H 08/02/23 07:32
ALT 32 U/L (0-35) 08/02/23 07:32
Alkaline Phosphatase 59 U/L (38-126) 08/02/23 07:32
Lipase 72 U/L (23-300) 07/31/23 08:54
Vital Signs and I&O:
Vital Signs
Temp Pulse Resp BP Pulse Ox
98.0 F 59 12 95/58 97
08/02/23 07:00 08/02/23 07:00 08/02/23 07:00 08/02/23 07:00 08/02/23 07:00
I&O
08/01/23 08/02/23 08/03/23
06:59 06:59 06:59
Intake Total 0 / 0 2180 / 2180
Balance 2179
Physical Exam
Physical Exam
HEENT: Anicteric
Cardiology: Normal Sinus Rhythm
Pulmonary: Clear
GI: Soft, Non Distended, Tender (mild LLQ tenderness) and Other (hypoactive BS)
Extremities: No Edema
Neuro: Non Focal
[2023-08-02 15:00] VITALS: BP 106/60
--- NOTE | 2023-08-02 15:14 | CM ---
Patient seen bedside.
IA completed.
Patient livfes with sister in 2 story home.
Independent prior to admission.
Drives.
patient denies home care needs.
PCP: none, information provided, also provided [employer] information.
Pharmacy: [facility]
Plan: home no needs.
[2023-08-02] MEDS: LOVENOX 40 MG SC (20:50)
[2023-08-02 23:10] VITALS: BP 101/57
[2023-08-03] MEDS: SOLU-MEDROL PF 20 MG IV ×3 (00:14→17:23)
[2023-08-03] MEDS: ZOSYN 50 IV ×4 (01:51→19:53)
[2023-08-03 07:00] VITALS: BP 119/56
[2023-08-03 08:22] VITALS: BP 119/56
[2023-08-03 08:30] LABS: Hematocrit 34.6 % (37.0-47.0); Hemoglobin 11.6 g/dL (12.0-16.0); Mean Corp Hgb Conc. 33.5 g/dL (33.0-37.0); Mean Corpuscular Hgb 26.9 pg (27.0-31.0); Mean Corpuscular Volume 80.3 fL (81.0-99.0); Mean Platelet Volume 10.3 fL (7.4-10.4); Platelet Count 248 10^3/uL (130-400); Red Blood Cell Count 4.31 10^6/uL (4.20-5.40); Red Cell Dist. Width 14.5 % (11.5-14.5)
[2023-08-03 08:37] LABS: ALT (SGPT) 53 U/L (0-35); AST (SGOT) 50 U/L (14-36); Albumin 3.6 g/dl (3.5-5.0); Alkaline Phosphatase 60 U/L (38-126); Blood Urea Nitrogen 6 mg/dl (7-17); Calcium 9.1 mg/dl (8.4-10.2); Carbon Dioxide 23 mmol/L (22-30); Chloride 104 mmol/L (98-107); Estimated Creatinine Clearance > 125 ml/min; Glucose 137 mg/dl (70-99); Magnesium 2.3 mg/dl (1.6-2.3); Sodium 136 mmol/L (135-145); Total Bilirubin 0.4 mg/dl (0.2-1.3); eGFR > 60.00
--- NOTE | 2023-08-03 09:46 | W.PN.CRS1 ---
Addendum entered and electronically signed by Mike Nelson MD 08/03/23 10:38:
Patient seen and examined. Agree with assessment plan as documented below.
Reports abdominal bloating and some reflux, denies any nausea or vomiting. Passing flatus and liquid stools. Sensation of difficulty to move bowels.
Gen: NAD
Abd: soft, moderately distended, NT, non-peritoneal
Patient is a 42 yo F with a long history of Crohn's disease presents with 1 day of acute onset nausea/vomiting, diarrhea and subjective fevers.
CT showing small bowel obstruction with 2 points of bowel wall thickening in the distal SB and proximal rectum, as well as large multiloculated fluid within the abdomen
07/30 s/p IR aspiration of abd, 2L of clear brown ascites
Clinically improved, though still exhibiting some signs of partial SBO or slow transit. Maintain on fulls. Plan for UGI today.
-- UGI
-- Continue fulls
-- Case discussed with GI will need flex sig (inpatient versus outpatient pending course)
Original Note:
Today's Communication / Plan
-
continue fulls
abdominal xray
Assessment/Plan
-
42-year-old female with a long history of Crohn's disease (initially diagnosed at 18 years old, s/p rounds of steroids and maintenance therapy with asacol; s/p likely ileocecal resection in 2012 for perforation and subtotal colectomy in 2019; was
started on Remicade, but only received 1 dose and stopped due to side effects; recently moved to the area and has not continued care with the GI doctor; last endoscopic evaluation of the rectum was in 2019 during the surgery) who presents with 1 day
of acute onset nausea/vomiting, diarrhea and subjective fevers. She also c/o abdominal fullness x 4 to 5 years with early satiety, this has been stable; in the ED, her WBC was 11.2, VSS, CT showing small bowel obstruction with 2 points of bowel
wall thickening in the distal SB and proximal rectum, as well as large multiloculated fluid within the abdomen
4/17 s/p IR aspiration of abd, 2L of clear brown ascites
AFVSS,
WBC 8.0
1. No indication for acute surgical intervention; cont nonoperative measures
2. Her SBO is likely related to the bowel wall thickening in the distal small bowel; differential includes Crohn's versus adhesions versus infectious
�Appreciate GI consult, will defer to GI for steroids
�CRP 45, Cdiff negative, stool Cx and fecal calpro pending
�Consider CTE or MRE to evaluate if wall thickening is inflammatory or stricture
�Will need flexible sigmoidoscopy to evaluate the rectum due to thickening noted on CT
3. The abdominal fluid is of unknown origin; she denies any history of liver disease, recent surgeries, weight loss or gynecologic issues
-CEA 0.75, CA125 24.8
-Transvaginal US - benign right ovarian cyst
�S/p IR aspiration, f/u fluid studies and cytology
4. Continue on fulls today given bloating. NPO if nausea/vomiting. Discussed with patient.
5. Appreciate hospitalist; on abx empirically.
6. Abdominal xray given bloating.
Subjective Data
Subjective Data
Date of Service: August 03, 2023
Patient states she is still bloated. She feels a little better than when she came in. She is having liquid stools. She denies nausea or vomiting.
Objective Data
-
Vital Signs
Temp Pulse Resp BP Pulse Ox
98.1 F 64 18 119/56 96
08/03/23 07:00 08/03/23 07:00 08/03/23 07:00 08/03/23 07:00 08/03/23 07:00
Intake & Output
08/02/23 08/03/23 08/04/23
06:59 06:59 06:59
Intake Total 2180 / 2180 2170 / 2170 50 / 50
Balance 2180 / 2180 2170 / 2170 50 / 50
Intake:
Oral fluids 2079
IV fluids (Total) 0 / 0
IV piggybacks 100 / 100 150 / 150 50 / 50
Other:
Number of approximated MODERATE 2 5 3
amounts of urine
Number of approximated LARGE 1
amounts of urine
Lab Results
08/03/23 08:10
08/03/23 08:10
Physical Exam
-
General: No Acute Distress and AOx3
Abdomen: Soft, Distended (moderate) and Non Tender
Incision: Clear, Dry, Intact
--- NOTE | 2023-08-03 10:20 | W.PN.GI.CBS2 ---
Addendum entered and electronically signed by Jazmyn Quinones MD 08/03/23 10:36:
Also noted mildly elevated AST and ALT, liver appeared normal on recent CT could be related to steroids or antibiotics or fatty liver will also get hepatitis serologies, doubt PSC
Original Note:
Today's Communication / Plan
-
continue full liquids
continue abx and steroids
Assessment / Plan
-
Summary: 42yo female with hx Crohn's dx'd age 18 s/p 2 surgeries in [place], not on medications presents with n/v/d, abd pain x 2 days, but has had chronic bloating, erratic BMs. Last colonoscopy at time of surgery in 2019. Just reestablished GI care
with [facility] 3[facility]4 months ago. NGT attempted in ER but unable to tolerate.
CT AP 07/30:
Thickening distal SB and high rectum. Dilation multiple loops mid/distal SB suggesting PSBO. Large amount loculated intraperitoneal fluid 24 x 25 x 15cm unknown etiology. Cholelithiasis
Impression:
PSBO 2/2 thickening in distal SB as well as high rectum
n/v/d
Crohn's disease not on medications
Ileocectomy 2012 for perforation
Colon resection 2019 for obstruction
Intraperitoneal fluid collection s/p aspiration
A/Plan:
-Partial small bowel obstruction most likely related to stricturing Crohn's disease and Crohn's flare versus adhesions.
-CTE with results as noted above does note distal small bowel stricture - likely chronic and inflammation consistent with flare and possible rectal stricture
-stool neg for infection( C. difficile antigen positive but toxin negative)
-Continue antibiotics and steroids.
-Currently on full liquid diet.
-She did see a valve setter in [place] to establish care but she is unsure if she will be going back to [place]. She is interested in pursuing IBD centers in [place] will refer her to [facility] or [facility] after DC and will need
an updated colonoscopy and will also need discussion about starting Biologics.
-Hopefully the obstruction will resolve without repeat surgery.
-Noted input from colorectal surgery also. for X ray today and SBFT if PSBO does not resolve
-Also has an intraperitoneal fluid collection status post aspiration unclear etiology will also need to rule out fistulizing disease. doubt abscess. will follow-up on the fluid cytology.
-Repeat CT with less fluid collection cannot rule out ruptured ovarian cyst, has ovarian cyst on imaging CT and US
-Her tumor markers including CEA and CA125 are normal
Subjective
Subjective
Date of Service: August 03, 2023
Pain is improving and she feels less distended, still with diarrhea no blood in the stool afebrile, no leukocytosis
Objective
Data Reviewed
Laboratory Data:
Laboratory Results
08/03/23 08:10
08/03/23 08:10
Laboratory Results
Magnesium 2.3 mg/dl (1.6-2.3) 08/03/23 08:10
Total Bilirubin 0.4 mg/dl (0.2-1.3) 08/03/23 08:10
AST 50 U/L (14-36) H 08/03/23 08:10
ALT 53 U/L (0-35) H 08/03/23 08:10
Alkaline Phosphatase 60 U/L (38-126) 08/03/23 08:10
Lipase 72 U/L (23-300) 07/31/23 08:54
Vital Signs and I&O:
Vital Signs
Temp Pulse Resp BP Pulse Ox
98.1 F 64 18 119/56 96
08/03/23 07:00 08/03/23 07:00 08/03/23 07:00 08/03/23 07:00 08/03/23 07:00
I&O
08/02/23 08/03/23 08/04/23
06:59 06:59 06:59
Intake Total 2180 / 2180 2170 / 2170 50 / 50
Balance 2180 / 2180 2170 / 2170 50 / 50
08/02/23 CTE
IMPRESSION:
1).There is stable bowel wall enhancement with inflammatory/thickening and luminal narrowing in the distal 10 cm of ileum with most prominent luminal narrowing extending over a length of 2 cm.
2). There is also a short focal area of luminal narrowing in the proximal rectum (axial image 117, coronal image 49 and sagittal image 80) which appears less prominent than on image 65 series 201 of the 07/31/2023 examination
3). There is moderate volume ascites in the pelvis, decreased in volume compared with the prior study
4). The right ovary is enlarged measuring 6 cm in diameter with multiple cysts as seen on the 08/01/2023 pelvic ultrasound
Physical Exam
Physical Exam
Cardiology: Normal Sinus Rhythm
Pulmonary: Clear
GI: Soft, Distended (Mildly distended), Tender (Mild lower abdomen tenderness) and Normal Bowel Sounds
--- NOTE | 2023-08-03 10:48 | W.PN.HOSP.TC ---
Today's Communication/Plan
-
We will not advance diet further past full liquids at this point
flatplate abdomen pending
Continue IV steroids and IV antibiotic
Assessment / Plan
Assessment / Plan
42-year-old female complaining of recurrent vomiting diarrhea abdominal bloating and abdominal pain. Symptoms started last evening. Vomited multiple times. Multiple episodes of diarrhea. Somewhat loose no blood or mucus. Patient with a history
of Crohn's disease and Crohn's resection. However this feels different than her Crohn's. No recent travel history no recent antibiotics. She did eat fish from a restaurant 2+ days ago. She has a history of a colectomy in the [place] area. more
recently She has been seen in [place] by a director of district office that follows her for her Crohn's disease by the name of Dr. Knox/she has had prior experience with Biologics but never able to tolerate she does not have anyone locally to manage her
Crohn's in the last 2 years since she is moved here. She suspect she may have had a fever last night she did not present with a fever here she does have some minor leukocytosis on presentation she does not look septic. hCG was negative lipase
normal LFTs normal./She does not follow with any gynecology.
CT scan of the abdomen and pelvis:
1. Two foci of inflammatory bowel wall thickening and luminal narrowing, one within the distal small bowel (best seen on series 201 images 49-52), and the second located within the high rectum, best seen on image 64. Dilation of multiple loops of
mid and distal small bowel, suggestive of at least partial intestinal obstruction.
2. Large amount of loculated intraperitoneal fluid, overall measuring 24 x 25 x 15 cm, of unknown etiology. Fluid may be related to ovarian mass, mucinous lesion of the bowel, or other etiology. Please correlate with prior imaging if available, and
consider pelvic ultrasound and or fluid sampling for cytology to determine etiology.
3. Cholelithiasis without evidence of acute cholecystitis.
Partial small bowel obstruction
-Prior history of Crohn's disease with colectomy
-Also involvement noted in rectum
-NG tube for decompression was pulled out by patient last night
-IV fluids
-Empiric antibiotic
-Possible Crohn's flare will start on empiric IV steroids and defer to GI
-CEA level of 0.75/CA125 at 24.8
-Consultation with colorectal and gastroenterology
Large amount of loculated intraperitoneal fluid
-As noted above unknown etiology/amount of loculation suggests some chronicity
-To the extent also involving and adjacent to the uterus
-Interventional radiology saw and drained at 2100 cc of light-colored brown fluid
-Initial fluid results suggest lack of infection/await cytology
-pelvic transvaginal ultrasound exhibited evidence of a ruptured ovarian cyst with normal ovaries and uterus noted otherwise unlikely cause of significant intraperitoneal fluid found on CT imaging
-Will continue to await cytology results from peritoneal fluid
Crohn's disease flare
-Failed prior courses of Biologics
-Sees director of district office down in [place] area Dr. Knox no further details available from patient
-Will obtain gastroenterology input and start IV steroids for now
-Fecal calprotectin pending
-CT enterographyT
here is stable bowel wall enhancement with inflammatory/thickening and luminal narrowing in the distal 10 cm of ileum with most prominent luminal narrowing extending over a length of 2 cm.
2). There is also a short focal area of luminal narrowing in the proximal rectum (axial image 117, coronal image 49 and sagittal image 80) which appears less prominent than on image 65 series 201 of the 07/31/2023 examination
3). There is moderate volume ascites in the pelvis, decreased in volume compared with the prior study
4). The right ovary is enlarged measuring 6 cm in diameter with multiple cysts as seen on the 08/01/2023 pelvic ultrasound
-Obtain stools for culture
Prior history of anxiety disorder
-On Abilify at bedtime
-Will need to be held during n.p.o. status and NG tube
-Can be restarted if tolerates clears
Atypical chest discomfort
-Unremarkable EKG
-Possibly aggravated by anxiety and/or active pulling up NG tube may have instigated some esophagitis
-Continue PPI
DVT prophylaxis with Lovenox and SCDs
Full CODE STATUS
Anticipated Discharge: 24 - 48 hours
Subjective/Interval History
-
Date of Service: August 03, 2023
Although has been tolerating full liquids without emesis and really has not had much bowel activity and feels bloated
Objective Data
-
Labs:
Laboratory Results
08/03/23
08:10
WBC 8.0
Hgb 11.6 L
Hct 34.6 L
Plt Count 248 D
Sodium 136
Potassium 4.0
Chloride 104
Carbon Dioxide 23
BUN 6 L
Creatinine 0.6
Glucose 137 H
Calcium 9.1
Total Bilirubin 0.4
AST 50 H
ALT 53 H
Alkaline Phosphatase 60
Vital Signs:
Vital Signs
Temp Pulse Resp BP Pulse Ox
98.1 F 64 18 119/56 96
08/03/23 07:00 08/03/23 07:00 08/03/23 07:00 08/03/23 07:00 08/03/23 07:00
I&O
08/02/23 08/03/23 08/04/23
06:59 06:59 06:59
Intake Total 2180 / 2180 2170 / 2170 50 / 50
Balance 2180 / 2180 2170 / 2170 50 / 50
Physical Exam
-
General: Well Nourished
Respiratory: Clear to Auscultation
Cardiac: Regular Rhythm
GI: Soft and Distended
Data Reviewed
-
Total Time Spent with Patient (in minutes): 56
Labs: Labs Reviewed by me
[2023-08-03 15:00] VITALS: BP 131/57
[2023-08-03] MEDS: LOVENOX 40 MG SC (17:23)
[2023-08-03 23:22] VITALS: BP 121/68
[2023-08-04] MEDS: SOLU-MEDROL PF 20 MG IV ×3 (00:35→16:09)
[2023-08-04] MEDS: ZOSYN 50 IV ×2 (02:42→08:27)
[2023-08-04 07:54] VITALS: BP 129/67
--- NOTE | 2023-08-04 09:04 | W.PN.CRS1 ---
Addendum entered and electronically signed by Mike Nelson MD 08/04/23 10:28:
Patient seen and examined. Agree with assessment plan as documented below.
Tolerating fulls. Multiple loose bowel movements, passing flatus. No nausea or vomiting. Does have some abdominal fullness and bloating. No nausea or vomiting.
Gen: NAD
Abd: soft, NT, mild/moderate distension, non-peritoneal
Labs and imaging reviewed.
-- Plan for UGI with SBFT today to assess degree of anastomotic narrowing and transit time.
-- Diet TBD based on imaging findings (plan for discharge on either full liquids or low residue diet with outpatient follow-up).
Original Note:
Today's Communication / Plan
-
SB follow through
Assessment/Plan
-
42-year-old female with a long history of Crohn's disease (initially diagnosed at 18 years old, s/p rounds of steroids and maintenance therapy with asacol; s/p likely ileocecal resection in 2012 for perforation and subtotal colectomy in 2019; was
started on Remicade, but only received 1 dose and stopped due to side effects; recently moved to the area and has not continued care with the GI doctor; last endoscopic evaluation of the rectum was in 2019 during the surgery) who presents with 1 day
of acute onset nausea/vomiting, diarrhea and subjective fevers. She also c/o abdominal fullness x 4 to 5 years with early satiety, this has been stable; in the ED, her WBC was 11.2, VSS, CT showing small bowel obstruction with 2 points of bowel
wall thickening in the distal SB and proximal rectum, as well as large multiloculated fluid within the abdomen
07/30 s/p IR aspiration of abd, 2L of clear brown ascites
AFVSS,
WBC 8.0
1. No indication for acute surgical intervention; cont nonoperative measures
2. Her SBO is likely related to the bowel wall thickening in the distal small bowel; differential includes Crohn's versus adhesions versus infectious
�Appreciate GI consult, will defer to GI for steroids
�CRP 45, Cdiff negative, stool Cx and fecal calpro pending
�Consider CTE or MRE to evaluate if wall thickening is inflammatory or stricture
�Will need flexible sigmoidoscopy to evaluate the rectum due to thickening noted on CT
3. The abdominal fluid is of unknown origin; she denies any history of liver disease, recent surgeries, weight loss or gynecologic issues
-CEA 0.75, CA125 24.8
-Transvaginal US - benign right ovarian cyst
�S/p IR aspiration, f/u fluid studies and cytology
4. Continue on fulls today given bloating. NPO if nausea/vomiting. Discussed with patient.
5. Appreciate hospitalist; on abx empirically.
6. Will order a SB follow through series today.
Subjective Data
Subjective Data
Date of Service: August 04, 2023
Patient states she has no nausea or vomiting. She tolerated fulls. However, she had a lot of diarrhea yesterday. She denies abdominal pain.
Objective Data
-
Vital Signs
Temp Pulse Resp BP Pulse Ox
97.9 F 61 16 129/67 97
08/04/23 07:54 08/04/23 07:54 08/04/23 07:54 08/04/23 07:54 08/04/23 07:54
Intake & Output
08/03/23 08/04/23 08/05/23
06:59 06:59 06:59
Intake Total 2170 / 2170 1110 / 1110
Balance 2170 / 2170 1110 / 1110
Intake:
Oral fluids 2019 960 / 960
IV piggybacks 150 / 150 150 / 150
Other:
Number of approximated MODERATE 5 2
amounts of urine
Lab Results
08/03/23 08:10
08/03/23 08:10
Physical Exam
-
General: No Acute Distress and AOx3
Abdomen: Soft, Non Distended and Non Tender
Skin: Warm and Dry
--- NOTE | 2023-08-04 09:32 | W.PN.GI.CBS2 ---
Today's Communication / Plan
-
changed abx to Levaquin and Flagyl
Probotics
SBFT
Assessment / Plan
-
Summary: 42yo female with hx Crohn's dx'd age 18 s/p 2 surgeries in [place], not on medications presents with n/v/d, abd pain x 2 days, but has had chronic bloating, erratic BMs. Last colonoscopy at time of surgery in 2019. Just reestablished GI care
with Dr Bermeo in [facility] 3-4 months ago. NGT attempted in ER but unable to tolerate.
CT AP 07/30:
Thickening distal SB and high rectum. Dilation multiple loops mid/distal SB suggesting PSBO. Large amount loculated intraperitoneal fluid 24 x 25 x 15cm unknown etiology. Cholelithiasis
Impression:
PSBO 2/2 thickening in distal SB as well as high rectum
n/v/d
Crohn's disease not on medications
Ileocectomy 2012 for perforation
Colon resection 2018 for obstruction
Intraperitoneal fluid collection s/p aspiration
A/Plan:
-Partial small bowel obstruction most likely related to stricturing Crohn's disease and Crohn's flare versus adhesions.
-CTE with distal small bowel stricture - likely chronic and inflammation consistent with flare and possible rectal stricture
-stool neg for infection( C. difficile antigen positive but toxin negative)
-Continue antibiotics D 5/7 and steroids. Diarrhea may also be related to antibiotic associated diarrhea will DC Zosyn and switch to Levaquin and Flagyl will treat for another 2 days and then can discontinue the antibiotics. No evidence of abscess
- ADD probiotics
-Currently on full liquid diet.
-She did see a satellite television installer in [place] to establish care but she is unsure if she will be going back to [place]. She is interested in pursuing IBD centers in [place] will refer her to [place] or [place] [facility] after DC and will need
an updated colonoscopy and will also need discussion about starting Biologics.
-Hopefully the obstruction will resolve without repeat surgery.
-Noted input from colorectal surgery also. for SBFT
-Also has an intraperitoneal fluid collection status post aspiration unclear etiology will also need to rule out fistulizing disease. doubt abscess. will follow-up on the fluid cytology.
-Repeat CT with less fluid collection cannot rule out ruptured ovarian cyst, has ovarian cyst on imaging CT and US
-Her tumor markers including CEA and CA125 are normal
Subjective
Subjective
Date of Service: August 04, 2023
She had more diarrhea yesterday. No rectal bleeding. Her abdominal bloating and distention and pain have improved. No nausea or vomiting on full liquids
Objective
Data Reviewed
Laboratory Data:
Laboratory Results
08/03/23 08:10
08/03/23 08:10
Laboratory Results
Magnesium 2.3 mg/dl (1.6-2.3) 08/03/23 08:10
Total Bilirubin 0.4 mg/dl (0.2-1.3) 08/03/23 08:10
AST 50 U/L (14-36) H 08/03/23 08:10
ALT 53 U/L (0-35) H 08/03/23 08:10
Alkaline Phosphatase 60 U/L (38-126) 08/03/23 08:10
Lipase 72 U/L (23-300) 07/31/23 08:54
Vital Signs and I&O:
Vital Signs
Temp Pulse Resp BP Pulse Ox
97.9 F 61 16 129/67 97
08/04/23 07:54 08/04/23 07:54 08/04/23 07:54 08/04/23 07:54 08/04/23 07:54
I&O
08/03/23 08/04/23 08/05/23
06:59 06:59 06:59
Intake Total 2170 / 2170 1110 / 1110
Balance 2170 / 2170 1110 / 1110
08/03/23 CR Abdomen - 2 Views
FINDINGS/impression:
Numerous fluid-filled small bowel loops are demonstrated. There are scattered small bowel air-fluid levels. Mild gaseous distention of the loop of bowel in the right mid abdomen; uncertain if this is a loop of small bowel or segment of colon. No
free air.
Incidental 10 mm gallstone in the right paramidline upper abdomen
Physical Exam
Physical Exam
Cardiology: Normal Sinus Rhythm
Pulmonary: Clear
GI: Soft, Non Distended, Tender (Mild lower abdominal tenderness) and Normal Bowel Sounds
--- NOTE | 2023-08-04 10:41 | W.PN.HOSP.TC ---
Today's Communication/Plan
-
For small bowel follow-through and follow-up with colorectal and gastroenterology
Continue IV steroids and Levaquin Flagyl
Will eventually need follow-up locally to initiate Biologics for her Crohn's
Assessment / Plan
Assessment / Plan
42-year-old female complaining of recurrent vomiting diarrhea abdominal bloating and abdominal pain. Symptoms started last evening. Vomited multiple times. Multiple episodes of diarrhea. Somewhat loose no blood or mucus. Patient with a history
of Crohn's disease and Crohn's resection. However this feels different than her Crohn's. No recent travel history no recent antibiotics. She did eat fish from a restaurant 2+ days ago. She has a history of a colectomy in the [place] area. more
recently She has been seen in [place] by a manager net that follows her for her Crohn's disease by the name of Dr. Knox/she has had prior experience with Biologics but never able to tolerate she does not have anyone locally to manage her
Crohn's in the last 2 years since she is moved here. She suspect she may have had a fever last night she did not present with a fever here she does have some minor leukocytosis on presentation she does not look septic. hCG was negative lipase
normal LFTs normal./She does not follow with any gynecology.
CT scan of the abdomen and pelvis:
1. Two foci of inflammatory bowel wall thickening and luminal narrowing, one within the distal small bowel (best seen on series 201 images 49-52), and the second located within the high rectum, best seen on image 64. Dilation of multiple loops of
mid and distal small bowel, suggestive of at least partial intestinal obstruction.
2. Large amount of loculated intraperitoneal fluid, overall measuring 24 x 25 x 15 cm, of unknown etiology. Fluid may be related to ovarian mass, mucinous lesion of the bowel, or other etiology. Please correlate with prior imaging if available, and
consider pelvic ultrasound and or fluid sampling for cytology to determine etiology.
3. Cholelithiasis without evidence of acute cholecystitis.
Partial small bowel obstruction
-Prior history of Crohn's disease with colectomy
-Also involvement noted in rectum
-Empiric antibiotic has been switched from Zosyn to Levaquin and Flagyl
-Continue IV steroid
-
-CEA level of 0.75/CA125 at 24.8
-Consultation with colorectal and gastroenterology/for small bowel follow-through presumably for Saturday to address possible anastomotic stricture in transit
Large amount of loculated intraperitoneal fluid
-As noted above unknown etiology/amount of loculation suggests some chronicity
-To the extent also involving and adjacent to the uterus
-Interventional radiology saw and drained at 2100 cc of light-colored brown fluid
-Initial fluid results suggest lack of infection/await cytology
-pelvic transvaginal ultrasound exhibited evidence of a ruptured ovarian cyst with normal ovaries and uterus noted otherwise unlikely cause of significant intraperitoneal fluid found on CT imaging
-Will continue to await cytology results from peritoneal fluid
Crohn's disease flare
-Failed prior courses of Biologics
-Sees manager net down in [place] area Dr. Knox no further details available from patient
-Will obtain gastroenterology input and start IV steroids for now
-Fecal calprotectin pending
-CT enterographyT
here is stable bowel wall enhancement with inflammatory/thickening and luminal narrowing in the distal 10 cm of ileum with most prominent luminal narrowing extending over a length of 2 cm.
2). There is also a short focal area of luminal narrowing in the proximal rectum (axial image 117, coronal image 49 and sagittal image 80) which appears less prominent than on image 65 series 201 of the 07/31/2023 examination
3). There is moderate volume ascites in the pelvis, decreased in volume compared with the prior study
4). The right ovary is enlarged measuring 6 cm in diameter with multiple cysts as seen on the 08/01/2023 pelvic ultrasound
-Obtain stools for culture/C. difficile antigen was positive however toxin negative
-Rest of stool cultures negative
Prior history of anxiety disorder
-On Abilify at bedtime
-Will need to be held during n.p.o. status and NG tube
-Can be restarted if tolerates clears
Atypical chest discomfort
-Unremarkable EKG
-Possibly aggravated by anxiety and/or active pulling up NG tube may have instigated some esophagitis
-Continue PPI
DVT prophylaxis with Lovenox and SCDs
Full CODE STATUS
Anticipated Discharge: 24 - 48 hours
Subjective/Interval History
-
Date of Service: August 04, 2023
Having frequent loose diarrheal stools minimal if any abdominal discomfort and no nausea tolerated present liquid diet
Objective Data
-
Vital Signs:
Vital Signs
Temp Pulse Resp BP Pulse Ox
97.9 F 61 16 129/67 97
08/04/23 07:54 08/04/23 07:54 08/04/23 07:54 08/04/23 07:54 08/04/23 07:54
I&O
08/03/23 08/04/23 08/05/23
06:59 06:59 06:59
Intake Total 2170 / 2170 1110 / 1110
Balance 2170 / 2170 1110 / 1110
Review of Systems
-
History Source: Patient
Constitutional: Reports Weakness
Respiratory: Reports No Symptoms
Cardiac: Reports No Symptoms
Abdomen/GI: Reports Diarrhea
Neuro: Reports No Symptoms
Endocrine: Reports No Symptoms
Hematologic / Lymphatic: Reports No Symptoms
Physical Exam
-
General: Well Developed and Well Nourished
HEENT: Normocephalic
Respiratory: Clear to Auscultation
Cardiac: Regular Rhythm
GI: Soft, Nontender, Nondistended and Normal Bowel Sounds
Neuro: Awake, Alert and Oriented
Psych: Calm
Data Reviewed
-
Total Time Spent with Patient (in minutes): 34
Labs: Labs Reviewed by me (C. difficile antigen was positive however the toxin was negative/stool cultures for Salmonella Shigella negative Campylobacter negative Shigella tend)
[2023-08-04] MEDS: FLAGYL 500 MG 100 IV ×2 (10:43→17:32)
[2023-08-04 15:47] VITALS: BP 131/71
[2023-08-04] MEDS: LOVENOX 40 MG SC (17:32)
[2023-08-04 23:11] VITALS: BP 114/59
[2023-08-05] MEDS: SOLU-MEDROL PF 20 MG IV ×4 (00:57→23:23)
[2023-08-05] MEDS: FLAGYL 500 MG 100 IV ×4 (01:00→23:23)
[2023-08-05 07:30] VITALS: BP 114/64
--- NOTE | 2023-08-05 08:50 | W.PN.CRS1 ---
Today's Communication / Plan
-
no plans for OR
Assessment/Plan
-
42-year-old female with a long history of Crohn's disease (initially diagnosed at 18 years old, s/p rounds of steroids and maintenance therapy with asacol; s/p likely ileocecal resection in 2013 for perforation and subtotal colectomy in 2019; was
started on Remicade, but only received 1 dose and stopped due to side effects; recently moved to the area and has not continued care with the GI doctor; last endoscopic evaluation of the rectum was in 2019 during the surgery) who presents with 1 day
of acute onset nausea/vomiting, diarrhea and subjective fevers. She also c/o abdominal fullness x 4 to 5 years with early satiety, this has been stable; in the ED, her WBC was 11.2, VSS, CT showing small bowel obstruction with 2 points of bowel
wall thickening in the distal SB and proximal rectum, as well as large multiloculated fluid within the abdomen
07/30 s/p IR aspiration of abd, 2L of clear brown ascites
AFVSS,
labs pending
1. No indication for acute surgical intervention; cont nonoperative measures
2. Her SBO is likely related to the bowel wall thickening in the distal small bowel; differential includes Crohn's versus adhesions versus infectious
�Appreciate GI consult, will defer to GI for steroids
�CRP 45, Cdiff negative, stool Cx and fecal calpro pending
�Consider CTE or MRE to evaluate if wall thickening is inflammatory or stricture
�Will need flexible sigmoidoscopy to evaluate the rectum due to thickening noted on CT
3. The abdominal fluid is of unknown origin; she denies any history of liver disease, recent surgeries, weight loss or gynecologic issues
-CEA 0.75, CA125 24.8
-Transvaginal US - benign right ovarian cyst
�S/p IR aspiration, f/u fluid studies and cytology
4. On fulls. Diet advancement per GI.
5. On solumedrol per GI.
Subjective Data
Subjective Data
Date of Service: August 05, 2023
Patient states she had 9 bowel movements yesterday. She has a little gas. She denies cramping. She is hungry.
Objective Data
-
Vital Signs
Temp Pulse Resp BP Pulse Ox
98.0 F 52 18 114/64 97
08/05/23 07:30 08/05/23 07:30 08/05/23 07:30 08/05/23 07:30 08/05/23 07:30
Intake & Output
08/04/23 08/05/23 08/06/23
06:59 06:59 06:59
Intake Total 1110 / 1110 340 / 340
Balance 1110 / 1110 340 / 340
Intake:
Oral fluids 960 / 960 240 / 240
IV piggybacks 150 / 150 100 / 100
Other:
Number of approximated MODERATE 2 3
amounts of urine
Physical Exam
-
General: No Acute Distress and AOx3
Abdomen: Soft, Distended (mild) and Non Tender
Skin: Warm and Dry
Incision: Clear, Dry, Intact
[2023-08-05] MEDS: LEVAQUIN 100 IV (09:09)
[2023-08-05 09:31] LABS: Calprotectin, Fecal 429 ug/g (<=49)
--- NOTE | 2023-08-05 09:35 | W.PN.GI.CBS2 ---
Addendum entered and electronically signed by Jazmyn Quinones MD 08/05/23 09:48:
Also noted mildly elevated AST and ALT, liver appeared normal on recent CT could be related to steroids or antibiotics or fatty liver will also get hepatitis serologies, doubt PSC
Trend LFTs
Will also get chest x-ray, Quantiferon TB test and hepatitis serologies in anticipation to start biologic soon
Original Note:
Today's Communication / Plan
-
SBFT today and if PSBO resolved will start LRD
COLO as OP
start biologics as OP
Assessment / Plan
-
Summary: 42yo female with hx Crohn's dx'd age 18 s/p 2 surgeries in [place], not on medications presents with n/v/d, abd pain x 2 days, but has had chronic bloating, erratic BMs. Last colonoscopy at time of surgery in 2019. Just reestablished GI care
with Dr Bermeo in [facility] 3-4 months ago. NGT attempted in ER but unable to tolerate.
CT AP 07/30:
Thickening distal SB and high rectum. Dilation multiple loops mid/distal SB suggesting PSBO. Large amount loculated intraperitoneal fluid 24 x 25 x 15cm unknown etiology. Cholelithiasis
Impression:
PSBO 2/2 thickening in distal SB as well as high rectum
n/v/d
Crohn's disease not on medications
Ileocectomy 2012 for perforation
Colon resection 2018 for obstruction
Intraperitoneal fluid collection s/p aspiration
A/Plan:
-Partial small bowel obstruction most likely related to stricturing Crohn's disease and Crohn's flare versus adhesions.
-CTE with distal small bowel stricture - likely chronic and inflammation consistent with flare and possible rectal stricture
-stool neg for infection( C. difficile antigen positive but toxin negative), fecal venancio 429
-Continue antibiotics D 7 and steroids. Diarrhea may also be related to antibiotic associated diarrhea DC Zosyn and switched to Levaquin and Flagyl 08/03 will treat for another 1 day and then can discontinue the antibiotics. No evidence of abscess
-milk allergy cannot use probiotics
-Currently on full liquid diet.
-She did see a aerotriangulation specialist in [place] to establish care but she is unsure if she will be going back to [place]. She is interested in pursuing IBD centers in [place] will refer her to [place] or [facility] [place] [facility] after DC and will need
an updated colonoscopy and will also need discussion about starting Biologics.
-Hopefully the obstruction will resolve without repeat surgery.
-Noted input from colorectal surgery also. for SBFT today
-Also has an intraperitoneal fluid collection status post aspiration unclear etiology will also need to rule out fistulizing disease. doubt abscess. will follow-up on the fluid cytology.
-Repeat CT with less fluid collection cannot rule out ruptured ovarian cyst, has ovarian cyst on imaging CT and US
-Her tumor markers including CEA and CA125 are normal
Subjective
Subjective
Date of Service: August 05, 2023
Diarrhea is improving but stools are still loose, she is tolerating full liquids, no nausea or vomiting, abdominal pain and bloating are improving
Objective
Data Reviewed
Laboratory Data:
Laboratory Results
Magnesium 2.3 mg/dl (1.6-2.3) 08/03/23 08:10
Total Bilirubin 0.4 mg/dl (0.2-1.3) 08/03/23 08:10
AST 50 U/L (14-36) H 08/03/23 08:10
ALT 53 U/L (0-35) H 08/03/23 08:10
Alkaline Phosphatase 60 U/L (38-126) 08/03/23 08:10
Lipase 72 U/L (23-300) 07/31/23 08:54
Vital Signs and I&O:
Vital Signs
Temp Pulse Resp BP Pulse Ox
98.0 F 52 18 114/64 97
08/05/23 07:30 08/05/23 07:30 08/05/23 07:30 08/05/23 07:30 04/22/24 07:30
I&O
08/04/23 08/05/23 08/06/23
06:59 06:59 06:59
Intake Total 1110 / 1110 340 / 340
Balance 1110 / 1110 340 / 340
Physical Exam
Physical Exam
Cardiology: Normal Sinus Rhythm
Pulmonary: Clear
GI: Soft, Non Distended, Non Tender and Normal Bowel Sounds
[2023-08-05] MEDS: PPD5TEST 5 UNITS INTRADERMA (10:28)
[2023-08-05 10:36] LABS: Hematocrit 40.2 % (37.0-47.0); Hemoglobin 13.1 g/dL (12.0-16.0); Mean Corp Hgb Conc. 32.6 g/dL (33.0-37.0); Mean Corpuscular Hgb 26.5 pg (27.0-31.0); Mean Corpuscular Volume 81.4 fL (81.0-99.0); Mean Platelet Volume 10.5 fL (7.4-10.4); Platelet Count 250 10^3/uL (130-400); Red Blood Cell Count 4.94 10^6/uL (4.20-5.40); Red Cell Dist. Width 14.4 % (11.5-14.5); White Blood Cell Count 8.5 10^3/uL (4.8-10.8)
[2023-08-05 13:08] LABS: AST (SGOT) 57 U/L (14-36); Albumin 3.8 g/dl (3.5-5.0); Alkaline Phosphatase 72 U/L (38-126); Blood Urea Nitrogen 8 mg/dl (7-17); Calcium 9.5 mg/dl (8.4-10.2); Carbon Dioxide 19 mmol/L (22-30); Chloride 104 mmol/L (98-107); Direct Bilirubin 0.4 mg/dl (0.0-0.4); Estimated Creatinine Clearance > 125 ml/min; Glucose 172 mg/dl (70-99); Potassium 3.8 mmol/L (3.5-5.1); Sodium 135 mmol/L (135-145); Total Bilirubin 0.4 mg/dl (0.2-1.3); Total Protein 6.3 g/dl (6.3-8.2); eGFR > 60.00
[2023-08-05 13:18] LABS: ALT (SGPT) 155 U/L (0-35)
[2023-08-05 15:30] VITALS: BP 112/55
--- NOTE | 2023-08-05 16:04 | CM ---
GI testing today.
Increased to LRD.
Plan:home no needs anticipated.
--- NOTE | 2023-08-05 16:34 | W.PN.HOSP.TC ---
Today's Communication/Plan
-
Overall improving with decreasing abdominal pain and loose stools
Full liquid diet
Empiric antibiotics.
Systemic corticosteroids
Assessment / Plan
Assessment / Plan
42-year-old female complaining of recurrent vomiting diarrhea abdominal bloating and abdominal pain. Symptoms started last evening. Vomited multiple times. Multiple episodes of diarrhea. Somewhat loose no blood or mucus. Patient with a history
of Crohn's disease and Crohn's resection. However this feels different than her Crohn's. No recent travel history no recent antibiotics. She did eat fish from a restaurant 2+ days ago. She has a history of a colectomy in the [place] area. more
recently She has been seen in [place] by a emergency response technician that follows her for her Crohn's disease by the name of Dr. Knox/she has had prior experience with Biologics but never able to tolerate she does not have anyone locally to manage her
Crohn's in the last 2 years since she is moved here. She suspect she may have had a fever last night she did not present with a fever here she does have some minor leukocytosis on presentation she does not look septic. hCG was negative lipase
normal LFTs normal./She does not follow with any gynecology.
CT scan of the abdomen and pelvis:
1. Two foci of inflammatory bowel wall thickening and luminal narrowing, one within the distal small bowel (best seen on series 201 images 49-52), and the second located within the high rectum, best seen on image 64. Dilation of multiple loops of
mid and distal small bowel, suggestive of at least partial intestinal obstruction.
2. Large amount of loculated intraperitoneal fluid, overall measuring 24 x 25 x 15 cm, of unknown etiology. Fluid may be related to ovarian mass, mucinous lesion of the bowel, or other etiology. Please correlate with prior imaging if available, and
consider pelvic ultrasound and or fluid sampling for cytology to determine etiology.
3. Cholelithiasis without evidence of acute cholecystitis.
Partial small bowel obstruction
-Prior history of Crohn's disease with colectomy
-Also involvement noted in rectum
-Empiric antibiotic has been switched from Zosyn to Levaquin and Flagyl
-Continue IV steroid
-
-CEA level of 0.75/CA125 at 24.8
-Consultation with colorectal and gastroenterology/for small bowel follow-through presumably for Saturday to address possible anastomotic stricture in transit
Large amount of loculated intraperitoneal fluid
-As noted above unknown etiology/amount of loculation suggests some chronicity
-To the extent also involving and adjacent to the uterus
-Interventional radiology saw and drained at 2100 cc of light-colored brown fluid
-Initial fluid results suggest lack of infection/await cytology
-pelvic transvaginal ultrasound exhibited evidence of a ruptured ovarian cyst with normal ovaries and uterus noted otherwise unlikely cause of significant intraperitoneal fluid found on CT imaging
-Will continue to await cytology results from peritoneal fluid
Crohn's disease flare
-Failed prior courses of Biologics
-Sees emergency response technician down in [place] area Dr. Knox no further details available from patient
-Will obtain gastroenterology input and start IV steroids for now
-Fecal calprotectin pending
-CT enterographyT
here is stable bowel wall enhancement with inflammatory/thickening and luminal narrowing in the distal 10 cm of ileum with most prominent luminal narrowing extending over a length of 2 cm.
2). There is also a short focal area of luminal narrowing in the proximal rectum (axial image 117, coronal image 49 and sagittal image 80) which appears less prominent than on image 65 series 201 of the 07/31/2023 examination
3). There is moderate volume ascites in the pelvis, decreased in volume compared with the prior study
4). The right ovary is enlarged measuring 6 cm in diameter with multiple cysts as seen on the 08/01/2023 pelvic ultrasound
-Obtain stools for culture/C. difficile antigen was positive however toxin negative
-Rest of stool cultures negative
Prior history of anxiety disorder
-On Abilify at bedtime
-Will need to be held during n.p.o. status and NG tube
-Can be restarted if tolerates clears
Atypical chest discomfort
-Unremarkable EKG
-Possibly aggravated by anxiety and/or active pulling up NG tube may have instigated some esophagitis
-Continue PPI
DVT prophylaxis with Lovenox and SCDs
Full CODE STATUS
Anticipated Discharge: > 48 hours
Subjective/Interval History
-
Date of Service: August 05, 2023
Objective Data
-
Labs:
Laboratory Results
08/05/23
10:17
WBC 8.5
Hgb 13.1
Hct 40.2
Plt Count 250
Sodium 135
Potassium 3.8
Chloride 104
Carbon Dioxide 19 L
BUN 8
Creatinine 0.6
Glucose 172 H
Calcium 9.5
Total Bilirubin 0.4
AST 57 H
ALT 155 H
Alkaline Phosphatase 72
Vital Signs:
Vital Signs
Temp Pulse Resp BP Pulse Ox
98.0 F 52 18 114/64 97
08/05/23 07:30 08/05/23 07:30 08/05/23 07:30 08/05/23 07:30 08/05/23 07:30
I&O
08/04/23 08/05/23 08/06/23
06:59 06:59 06:59
Intake Total 1110 / 1110 340 / 340
Balance 1110 / 1110 340 / 340
Physical Exam
-
General: Well Developed and No Apparent Distress
HEENT: Normocephalic, Atraumatic and Moist Mucous Membranes
Respiratory: Clear to Auscultation
Cardiac: Regular Rhythm and S1/S2; Negative Murmur, Rub or Gallop
GI: Soft, Nontender, Nondistended and Normal Bowel Sounds; Negative Organomegaly
Rectal: Deferred by Provider
Musculoskeletal: No Clubbing, No Cyanosis and No Edema
Skin: Negative Rash
Neuro: Nonfocal/Grossly Intact
[2023-08-05] MEDS: LOVENOX 40 MG SC (17:47)
[2023-08-05 18:50] LABS: Hepatitis B Surface Antigen Negative (Negative)
[2023-08-05 19:09] LABS: Hepatitis B Core Ab, Total Negative (Negative); Hepatitis B Surface Antibody Positive; Hepatitis C Antibody Negative (Negative)
[2023-08-05 19:42] LABS: Hepatitis A Antibody, Total Negative (Negative)
[2023-08-05 20:28] LABS: Hepatitis B Core Ab, IgM Negative (Negative)
[2023-08-05 23:35] VITALS: BP 106/61
--- NOTE | 2023-08-06 08:11 | W.PN.CRS1 ---
Today's Communication / Plan
-
Cont low residue
Recommend stopping antibiotics
Cont steroid taper; transition to biologics per GI
Will need flex sig to assess rectal thickening and can biopsy neoterminal ileum
Once medically clear for discharge; follow-up with me in 2 weeks
Assessment/Plan
-
42-year-old female with a long history of Crohn's disease (initially diagnosed at 18 years old, s/p rounds of steroids and maintenance therapy with asacol; s/p likely ileocecal resection in 2012 for perforation and subtotal colectomy in 2019; was
started on Remicade, but only received 1 dose and stopped due to side effects; recently moved to the area and has not continued care with the GI doctor; last endoscopic evaluation of the rectum was in 2019 during the surgery) who presents with 1 day
of acute onset nausea/vomiting, diarrhea and subjective fevers. She also c/o abdominal fullness x 4 to 5 years with early satiety, this has been stable; in the ED, her WBC was 11.2, VSS, CT showing small bowel obstruction with 2 points of bowel
wall thickening in the distal SB and proximal rectum, as well as large multiloculated fluid within the abdomen
07/30 s/p IR aspiration of abd, 2L of clear brown ascites - cytology still pending
AFVSS,
WBC 5.0
� No indication for acute surgical intervention; cont nonoperative measures
� Her SBO is likely related to the bowel wall thickening in the distal small bowel; differential includes Crohn's versus adhesions versus infectious
�Appreciate GI consult, cont steroids, slow taper
�CRP 45, Cdiff negative, stool Cx negative and fecal calpro 425; more consistent with crohn's flare
�CTE - 10cm of thickening/narrowing of terminal ileum; short area of luminal narrowing in the proximal rectum; SBFT with congruent findings
�Recommend initiating biologics;
-Needs flexible sigmoidoscopy to evaluate the rectum due to thickening noted on CT
� The abdominal fluid is of unknown origin; she denies any history of liver disease, recent surgeries, weight loss or gynecologic issues
-CEA 0.75, CA125 24.8
-Transvaginal US - benign right ovarian cyst
�S/p IR aspiration, f/u fluid studies and cytology
�Cont low residue
-Recommend discontinuing antibiotics
�Appreciate hospitalist
Subjective Data
Subjective Data
Date of Service: August 06, 2023
Objective Data
-
Vital Signs
Temp Pulse Resp BP Pulse Ox
98.1 F 54 18 106/61 98
08/05/23 23:35 08/05/23 23:35 08/05/23 23:35 08/05/23 23:35 08/05/23 23:35
Intake & Output
08/05/23 08/06/23 08/07/23
06:59 06:59 06:59
Intake Total 340 / 340 1860 / 1860
Balance 340 / 340 1860 / 1860
Intake:
Oral fluids 240 / 240 1560 / 1560
IV fluids (Total) 200 / 200
IV piggybacks 100 / 100 100 / 100
Other:
Number of approximated MODERATE 3 2
amounts of urine
Number of approximated LARGE 1
amounts of urine
Lab Results
08/05/23 10:17
08/05/23 10:17
[2023-08-06] MEDS: SOLU-MEDROL PF 20 MG IV (08:14)
[2023-08-06] MEDS: FLAGYL 500 MG 100 IV (08:14)
[2023-08-06 08:35] VITALS: BP 108/66
[2023-08-06] MEDS: LEVAQUIN 100 IV (09:37)
--- NOTE | 2023-08-06 10:36 | W.PN.GI.CBS2 ---
Addendum entered and electronically signed by Patrizia Woody NP 08/07/23 07:39:
She should be on Calcium/vitamin D supplement while on steroids.
Addendum entered and electronically signed by Bo Harper MD 08/06/23 15:05:
I saw and examined the patient.
The PA's note was reviewed and I agree with the note.
Comment:
Tolerating low reside diet, abx d/c'ed, will convert IV solumedrol to oral prednisone today, has f/u with Dr. Gonzales. If she does well tomorrow after oral steroid conversion, then can d/c home. GI will s/o, pls call with questions.
Original Note:
Today's Communication / Plan
-
Transition to PO steroids. Low residue diet. D/c antibiotics as she completed 7 day course. OP colonoscopy and biologic initiation.
Assessment / Plan
-
The pt is a 42yo female with a PMH significant for Crohn's dx'd age 18 s/p several small bowel and colonic resections with surgeries in [place], not on medications who presented with complaints of nausea, vomiting, and diarrhea along with abdominal pain
x 2 days. Notes history of chronic abdominal bloating and erratic bowel movements. Her last colonoscopy at time of surgery in 2019. She recently reestablished GI care with Dr Bermeo in [facility] 3-4 months ago. Imaging on admission showed thickening
distal small bowel and high rectum suggesting partial small bowel obstruction. Also with a large amount of loculated intraperitoneal fluid 24 x 25 x 15 cm status post IR drainage with pathology pending.
CT AP 07/30:
Thickening distal SB and high rectum. Dilation multiple loops mid/distal SB suggesting PSBO. Large amount loculated intraperitoneal fluid 24 x 25 x 15cm unknown etiology. Cholelithiasis
08/05/23 SBFT: Luminal narrowing at the ileocolic anastomosis/proximal rectum felt to correspond to recent CT finding. This is likely due to inflammation or infection as suggested by recent CT examination. Mild small bowel dilatation in the right
lower quadrant. Etiology unknown.
08/04/22 CXR: No acute cardiopulmonary process.
Problem list:
-PSBO 2/2 thickening in distal SB as well as high rectum
-Nausea, vomiting, diarrhea, resolved
-C. difficile antigen positive toxin negative
-Crohn's disease not on medications
-Ileocectomy 2013 for perforation
-Colon resection 2019 for obstruction
-Intraperitoneal fluid collection s/p aspiration
Recommendations:
-Etiology of presenting symptoms secondary to partial small bowel obstruction most likely related to stricturing Crohn's disease and Crohn's flare versus adhesions versus infectious versus other.
---CTE with distal small bowel stricture - likely chronic and inflammation consistent with flare and possible rectal stricture. SBFT showing luminal narrowing at the ileocolic anastomosis/pox rectum and mild SB dilation in the RLQ.
-She is passing gas and moving small amounts of liquid with blobs of formed stool and tolerating low residue diet. She has no further n/v/abdominal pain
-Stool culture neg for infection(C. difficile antigen positive but toxin negative), fecal venancio 429
-Agreed to discontinue antibiotics as recommended as per colorectal surgery as she received a 7-day course.
-Continue steroids, will switch to p.o. today. Will do slow taper pending initiation of biologics.
-Continue low residue diet. Did advise her to stay on this even after discharge to prevent recurrent obstruction.
-She would like to follow-up in our office for local care, but will continue to see her doctor in [place] as well. As previously recommended she will need an updated colonoscopy and will also need discussion about starting Biologics.
-TB Gold is pending but she is hepatitis B negative along with a normal chest x-ray. She also had a TB skin test which is pending review.
-Also had an intraperitoneal fluid collection status post aspiration unclear etiology. Will also need to rule out fistulizing disease/abscess. Will follow-up on the fluid cytology.
-OP follow-up with colorectal as directed, recommending OP flex sig.
-Repeat LFT's, further work-up OP if indicated. Hepatitis serologies negative.
-Will follow
Subjective
Subjective
Date of Service: August 06, 2023
The pt was seen and examined at the bedside. She denies any abdominal pain, nausea, or vomiting. She is tolerating low residue diet.
Objective
Data Reviewed
Laboratory Data:
Laboratory Results
08/05/23 10:17
08/05/23 10:17
Laboratory Results
Magnesium 2.3 mg/dl (1.6-2.3) 08/03/23 08:10
Total Bilirubin 0.4 mg/dl (0.2-1.3) 08/05/23 10:17
AST 57 U/L (14-36) H 08/05/23 10:17
ALT 155 U/L (0-35) H 08/05/23 10:17
Alkaline Phosphatase 72 U/L (38-126) 08/05/23 10:17
Lipase 72 U/L (23-300) 07/31/23 08:54
Vital Signs and I&O:
Vital Signs
Temp Pulse Resp BP Pulse Ox
98.0 F 60 16 108/66 96
08/06/23 08:35 08/06/23 08:35 08/06/23 08:35 08/06/23 08:35 08/06/23 08:35
I&O
08/05/23 08/06/23 08/07/23
06:59 06:59 06:59
Intake Total 340 / 340 1859
Balance 340 / 340 1859
Physical Exam
Physical Exam
HEENT: Anicteric
Cardiology: S1 and S2 (Regular rate/rhythm)
Pulmonary: Clear
GI: Soft, Non Distended, Non Tender and Normal Bowel Sounds
Extremities: No Edema
Neuro: Non Focal
--- NOTE | 2023-08-06 12:14 | CM ---
Increasing diet.
Outpatient f/u.
Plan: home with stable, no needs.
[2023-08-06 12:21] LABS: C-Reactive Protein < 5.00 mg/L (0.0-10.00)
[2023-08-06 15:01] VITALS: BP 112/52
--- NOTE | 2023-08-06 15:05 | W.PN.UPDATE ---
Update Note
Progress Note Update
Billing note
[2023-08-06] MEDS: DELTASONE 40 MG PO (16:27)
--- NOTE | 2023-08-06 17:28 | W.PN.HOSP.TC ---
Today's Communication/Plan
-
Clinically improved.
Completed course of antibiotics.
Transition to oral steroids
Diet has been advanced to low residue
Monitor on oral steroids diet tolerance for another 24 hours prior to discharge
Assessment / Plan
Assessment / Plan
42-year-old female complaining of recurrent vomiting diarrhea abdominal bloating and abdominal pain. Symptoms started last evening. Vomited multiple times. Multiple episodes of diarrhea. Somewhat loose no blood or mucus. Patient with a history
of Crohn's disease and Crohn's resection. However this feels different than her Crohn's. No recent travel history no recent antibiotics. She did eat fish from a restaurant 2+ days ago. She has a history of a colectomy in the [place] area. more
recently She has been seen in [place] by a crime prevention worker that follows her for her Crohn's disease by the name of Dr. Knox/she has had prior experience with Biologics but never able to tolerate she does not have anyone locally to manage her
Crohn's in the last 2 years since she is moved here. She suspect she may have had a fever last night she did not present with a fever here she does have some minor leukocytosis on presentation she does not look septic. hCG was negative lipase
normal LFTs normal./She does not follow with any gynecology.
CT scan of the abdomen and pelvis:
1. Two foci of inflammatory bowel wall thickening and luminal narrowing, one within the distal small bowel (best seen on series 201 images 49-52), and the second located within the high rectum, best seen on image 64. Dilation of multiple loops of
mid and distal small bowel, suggestive of at least partial intestinal obstruction.
2. Large amount of loculated intraperitoneal fluid, overall measuring 24 x 25 x 15 cm, of unknown etiology. Fluid may be related to ovarian mass, mucinous lesion of the bowel, or other etiology. Please correlate with prior imaging if available, and
consider pelvic ultrasound and or fluid sampling for cytology to determine etiology.
3. Cholelithiasis without evidence of acute cholecystitis.
Partial small bowel obstruction
-Prior history of Crohn's disease with colectomy
-Also involvement noted in rectum
-Empiric antibiotic has been switched from Zosyn to Levaquin and Flagyl completing course on 08/05
-Transition to oral steroids prednisone 40 mg for slow taper.
-
-CEA level of 0.75/CA125 at 24.8
-Consultation with colorectal and gastroenterology/for small bowel follow-through presumably for Saturday to address possible anastomotic stricture in transit
Large amount of loculated intraperitoneal fluid
-As noted above unknown etiology/amount of loculation suggests some chronicity
-To the extent also involving and adjacent to the uterus
-Interventional radiology saw and drained at 2100 cc of light-colored brown fluid
-Initial fluid results suggest lack of infection/await cytology
-pelvic transvaginal ultrasound exhibited evidence of a ruptured ovarian cyst with normal ovaries and uterus noted otherwise unlikely cause of significant intraperitoneal fluid found on CT imaging
-Will continue to await cytology results from peritoneal fluid
Crohn's disease flare
-Failed prior courses of Biologics
-Sees crime prevention worker down in [place] area Dr. Knox no further details available from patient
-Will obtain gastroenterology input and start IV steroids for now
-Fecal calprotectin pending
-CT enterographyT
here is stable bowel wall enhancement with inflammatory/thickening and luminal narrowing in the distal 10 cm of ileum with most prominent luminal narrowing extending over a length of 2 cm.
2). There is also a short focal area of luminal narrowing in the proximal rectum (axial image 117, coronal image 49 and sagittal image 80) which appears less prominent than on image 65 series 201 of the 07/31/2023 examination
3). There is moderate volume ascites in the pelvis, decreased in volume compared with the prior study
4). The right ovary is enlarged measuring 6 cm in diameter with multiple cysts as seen on the 08/01/2023 pelvic ultrasound
-Obtain stools for culture/C. difficile antigen was positive however toxin negative
-Rest of stool cultures negative
Prior history of anxiety disorder
-On Abilify at bedtime
-Will need to be held during n.p.o. status and NG tube
-Can be restarted if tolerates clears
Atypical chest discomfort
-Unremarkable EKG
-Possibly aggravated by anxiety and/or active pulling up NG tube may have instigated some esophagitis
-Continue PPI
DVT prophylaxis with Lovenox and SCDs
Full CODE STATUS
Anticipated Discharge: Within 24 hours
Subjective/Interval History
-
Date of Service: August 06, 2023
Objective Data
-
Vital Signs:
Vital Signs
Temp Pulse Resp BP Pulse Ox
98.7 F 55 16 112/52 98
08/06/23 15:01 08/06/23 15:01 08/06/23 15:01 08/06/23 15:01 08/06/23 15:01
I&O
08/05/23 08/06/23 08/07/23
06:59 06:59 06:59
Intake Total 340 / 340 1860 / 1860
Balance 340 / 340 1860 / 1860
Physical Exam
-
General: Well Developed and No Apparent Distress
HEENT: Normocephalic, Atraumatic and Moist Mucous Membranes
Respiratory: Clear to Auscultation
Cardiac: Regular Rhythm and S1/S2; Negative Murmur, Rub or Gallop
GI: Soft, Nontender, Nondistended and Normal Bowel Sounds; Negative Organomegaly
Rectal: Deferred by Provider
Musculoskeletal: No Clubbing, No Cyanosis and No Edema
Skin: Negative Rash
Neuro: Nonfocal/Grossly Intact
[2023-08-06] MEDS: LOVENOX SC (17:55)
[2023-08-06 23:24] VITALS: BP 104/55
[2023-08-07 07:00] VITALS: BP 100/62
[2023-08-07 08:50] LABS: Vitamin D, 25-OH*** 44.5 ng/mL (30-80)
[2023-08-07] MEDS: DELTASONE 40 MG PO (09:37)
[2023-08-07] MEDS: OSCAL 500 + D 500 MG PO (09:38)
--- NOTE | 2023-08-07 11:26 | W.PN.CRS1 ---
Today's Communication / Plan
-
materials buyer
ok for d/c
Assessment/Plan
-
42-year-old female with a long history of Crohn's disease (initially diagnosed at 18 years old, s/p rounds of steroids and maintenance therapy with asacol; s/p likely ileocecal resection in 2013 for perforation and subtotal colectomy in 2019; was
started on Remicade, but only received 1 dose and stopped due to side effects; recently moved to the area and has not continued care with the GI doctor; last endoscopic evaluation of the rectum was in 2019 during the surgery) who presents with 1 day
of acute onset nausea/vomiting, diarrhea and subjective fevers. She also c/o abdominal fullness x 4 to 5 years with early satiety, this has been stable; in the ED, her WBC was 11.2, VSS, CT showing small bowel obstruction with 2 points of bowel
wall thickening in the distal SB and proximal rectum, as well as large multiloculated fluid within the abdomen
07/30 s/p IR aspiration of abd, 2L of clear brown ascites - cytology still pending
AFVSS,
WBC 5.0
� No indication for acute surgical intervention; cont nonoperative measures
� Her SBO is likely related to the bowel wall thickening in the distal small bowel; differential includes Crohn's versus adhesions versus infectious
�Appreciate GI consult, cont steroids, slow taper
�CRP 45, Cdiff negative, stool Cx negative and fecal calpro 425; more consistent with crohn's flare
�CTE - 10cm of thickening/narrowing of terminal ileum; short area of luminal narrowing in the proximal rectum; SBFT with congruent findings
�Recommend initiating biologics;
-Needs flexible sigmoidoscopy to evaluate the rectum due to thickening noted on CT
� The abdominal fluid is of unknown origin; she denies any history of liver disease, recent surgeries, weight loss or gynecologic issues
-CEA 0.75, CA125 24.8
-Transvaginal US - benign right ovarian cyst
�S/p IR aspiration, f/u fluid studies and cytology
�Cont low residue
-Okay for discharge today. She is requesting to meet with a materials buyer for a low residue diet. Follow up with Dr. Ramos in the office in 2-3 weeks. Follow up with her outpatient GI physician to discuss biologics.
Subjective Data
Subjective Data
Date of Service: August 07, 2023
Patient states she feels run down. Otherwise, she is having watery bowel movements. She has no abdominal pain. She is tolerating a diet.
Objective Data
-
Vital Signs
Temp Pulse Resp BP Pulse Ox
98.2 F 56 18 100/62 96
08/07/23 07:00 08/07/23 07:00 08/07/23 07:00 08/07/23 07:00 08/07/23 11:03
Intake & Output
08/06/23 08/07/23 08/08/23
06:59 06:59 06:59
Intake Total 1860 / 1860 480 / 480
Balance 1860 / 1860 480 / 480
Intake:
Oral fluids 1560 / 1560 480 / 480
IV fluids (Total) 200 / 200
IV piggybacks 100 / 100
Other:
Number of approximated MODERATE 2 2
amounts of urine
Number of approximated LARGE 1
amounts of urine
Lab Results
08/05/23 10:17
08/05/23 10:17
Physical Exam
-
General: No Acute Distress and AOx3
Abdomen: Soft, Non Distended and Non Tender
Incision: Clear, Dry, Intact
[2023-08-07 15:00] VITALS: BP 112/69
[2023-08-07 15:35] VITALS: BP 124/58
--- NOTE | 2023-08-07 16:33 | W.DS.TRANS ---
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
-
Discharge Instructions:
Discharge Diagnosis/Procedures Crohn's disease flare with partial small bowel
obstruction.
Diet Low Residue
Others Tests She should have monitoring of her Vitamin D
levels with PCP within 3 months time.
Instructions:
Stand-Alone Forms:
Changes to Home Medications: Yes
Discharge Medications:
DC Medications w/original date entered in [employer]
Probiotic Powder 1 dose PO DAILY 07/31/23
Vitamin C 1 dose PO DAILYPRN PRN supplement 07/31/23
aripiprazole 5 mg tablet 5 mg PO HS 07/31/23
cholecalciferol (vitamin D3) 1 tab PO DAILY 07/31/23
multivitamin 1 dose PO DAILYPRN PRN supplement 07/31/23
prednisone 10 mg tablet 10 mg PO DIRECTED #240 tabs 08/07/23
Home Medication Changes
Steroid taper
Pending Results: No
[2023-08-07 17:02] LABS: Quantiferon Mitogen minus NIL 5.71 IU/mL; Quantiferon NIL 0.01 IU/mL; Quantiferon TB Gold Plus Negative (Negative)
[2023-08-07] MEDS: LOVENOX SC (17:23)
[2023-08-07] MEDS: CHECK PPD SITE 1 CHECK INTRADERMA (17:43)
--- NOTE | 2023-08-07 17:49 | PTCARENOTE ---
rn flow art installer- Read patients PPD early and documented it.
== END 2023-08-07 17:57 | disposition home or self-care (01) | DRG 386 ==
LOC: 4 WEST ACU 13:04
PROVIDERS: Internal Medicine Gastroenterology; Physician Assistant; Radiology Vascular & Interventional Radiology; ADMITTING PHYSICIAN Internal Medicine; ATTENDING PHYSICIAN Internal Medicine; CONSULT PHYSICIAN Specialist; EMERGENCY PHYSICIAN Emergency Medicine; OTHER PHYSICIAN Surgery
PROC: 0D9670Z Drainage of Stomach with Drainage Device, Via Natural or Artificial Opening (ICD-10-PCS; 2023-07-31)
PROC: 0W9G3ZX Drainage of Peritoneal Cavity, Percutaneous Approach, Diagnostic (ICD-10-PCS; 2023-07-31)
DX: K50.912 Crohn's disease, unspecified, with intestinal obstruction (principal); R18.8 Other ascites; K80.20 Calculus of gallbladder without cholecystitis without obstruction; R07.89 Other chest pain; R68.81 Early satiety; F41.9 Anxiety disorder, unspecified; Z90.49 Acquired absence of other specified parts of digestive tract; Z91.011 Allergy to milk products; Z91.013 Allergy to seafood
CPT/HCPCS: 88305; 49083; 71046; 74019; 74177; 74240; 74248; 76830; 76856; 80053; 82042; 82150; 82248; 82306; 82378; 82607; 82945; 83540; 83550; 83615; 83690; 83735; 83993; 84157; 84703; 85025; 85027; 86140; 86304; 86480; 86704; 86705; 86706; 86708; 86803; 87015; 87040; 87045; 87046; 87070; 87205; 87324; 87340; 87427; 87449; 88112; 89051; 89055; 93005; 96361; 96365; 96375; 96376; 99285; Q9967